=== PATIENT | female | born 1955 | race African-American/Black ===

== ENCOUNTER 2018-06-24 15:09 | Inpatient (IN) ==
[2018-06-24] MEDS ORDERED: Sod Chloride 0.9% Inj 1,000 ML IV.SIG ONE (15:59)
[2018-06-24] MEDS ORDERED: Morphine Inj 4 MG/ML Vial IV.PUSH ONE (16:11)
--- NOTE | 2018-06-24 16:19 | XR ---
EXAM DATE: 06/24/2018 3:59 PM EDT AGE/SEX: 63 years / Female INDICATIONS: Dyspnea. CLINICAL DATA: This is the patient's initial encounter. Patient reports that signs and symptoms have been present for 1 month and indicates a pain score of 0/10. MEDICAL/SURGICAL HISTORY: Congestive heart failure. Diabetes mellitus type II. None. COMPARISON: No prior exams available for comparison. FINDINGS: A single AP view of the chest demonstrates the lungs to be symmetrically aerated without evidence of mass, infiltrate or effusion. There is mild elevation of the right hemidiaphragm. The cardiomediastin al contours are unremarkable. Osseous structures are intact. CONCLUSION: No acute intrathoracic disease. Electronically signed by: Filiberto Jimenez MD 06/24/2018 4:17 PM EDT
[2018-06-24 16:43] LABS: Baso # (Auto) 0.1 th/mm3 (0.0-0.2); Baso % (Auto) 0.4 % (0.0-2.0); Eos % (Auto) 0.2 % (0.0-4.0); Hematocrit 35.1 % (35.0-46.0); Hemoglobin 11.2 gm/dL (11.6-15.3); Lymph # (Auto) 1.2 th/mm3 (1.0-4.8); Lymph % (Auto) 8.6 % (9.0-44.0); Mean Corpuscular Hemoglobin 26.7 pg (27.0-34.0); Mean Corpuscular Volume 83.4 fL (80.0-100.0); Mean Platelet Volume 8.9 fL (7.0-11.0); Mono # (Auto) 0.9 th/mm3 (0.0-0.9); Mono % (Auto) 6.1 % (0.0-8.0); Neut # (Auto) 12.2 th/mm3 (1.8-7.7); Neut % (Auto) 84.7 % (16.0-70.0); Platelet Count 358 th/mm3 (150-450); Red Blood Count 4.21 mil/mm3 (4.00-5.30); Red Cell Distribution Width 14.7 % (11.6-17.2); White Blood Count 14.4 th/mm3 (4.0-11.0)
[2018-06-24] MEDS ORDERED: hydrALAZINE HCl Inj 20 MG/ML Vial IV.PUSH ONE (17:07)
[2018-06-24 17:11] LABS: Alanine Aminotransferase 10 U/L (10-53); Albumin 2.4 g/dL (3.4-5.0); Anion Gap 10 meq/L (5-15); Aspartate Aminotransferase 12 U/L (15-37); Blood Urea Nitrogen 24 mg/dL (7-18); Calcium 8.2 mg/dL (8.5-10.1); Chloride 106 meq/L (98-107); Glomerular Filtration Rate 43 mL/min (>89); Glucose,Random 187 mg/dL (74-106); Sodium 139 meq/L (136-145)
[2018-06-24 17:12] LABS: Potassium 4.2 meq/L (3.5-5.1)
[2018-06-24 17:18] LABS: Alkaline Phosphatase 72 U/L (45-117); Beta Hydroxybutyric Acid 0.31 mmol/L (0.00-0.39); Thyroid Stimulating Hormone 0.201 uIU/mL (0.358-3.740); Total Protein 7.7 g/dL (6.4-8.2)
[2018-06-24 17:19] LABS: Creatine Kinase 45 U/L (26-192)
--- NOTE | 2018-06-24 18:01 | ED ---
HPI General Chief complaint: Weakness Stated complaint: Medical Time Seen by Provider: 06/24/18 15:55 History of Present Illness HPI narrative: This is a 63-year-old female with a history of diabetes mellitus , hypertension, rheumatoid arthritis, SLE, presents today with complaints of diffuse body pain. Patient also reports urinary frequency. Patient states that she is been feeling extremely weak. She states that she has been bad for several days and is not had any strength to get out of bed. Related Data Home Medications Medication Instructions Recorded Confirmed lisinopril 2.5 mg PO DAILY 06/24/18 06/24/18 Previous Rx's Medication Instructions Recorded gabapentin 100 mg PO TID #30 cap 06/27/18 insulin aspart U-100 [Novolog 1 sliding scale dose SUBCUT UD 30 06/27/18 U-100 Insulin aspart] Days ml lisinopril 10 mg PO DAILY 30 Days #30 tab 06/27/18 metformin 500 mg PO BID 30 Days #60 tab 06/27/18 nitrofurantoin monohyd/m-cryst 100 mg PO BID 5 Days #10 cap 06/27/18 [Macrobid] prednisone 5 mg PO DIRECTED 10 Days #10 tab 06/27/18 tramadol [Ultram] 50 mg PO Q6H PRN #8 tab 06/27/18 Allergies Allergy/AdvReac Type Severity Reaction Status Date / Time No Known Allergies Allergy Uncoded 08/27/12 15:42 Review of Systems Constitutional Denies chills and Denies fever(s) Eyes Denies blurry vision and Denies diplopia ENT Reports system reviewed and no additional complaints, except as docu Cardiovascular Reports chest pain (Pain all over), Denies edema and Reports palpitations Respiratory Denies chest congestion, Denies cough and Reports dyspnea Gastrointestinal Denies abdominal pain, Reports nausea and Denies vomiting Genitourinary Reports urinary frequency and Denies dysuria Musculoskeletal Reports myalgias, Reports arthralgias, Denies numbness and Reports other ( Diffuse body pain. Patient has a history of rheumatoid arthritis.) Integumentary/Breasts Reports system reviewed and no additional complaints, except as docu Neurologic Denies dizziness, Denies headache(s) and Reports weakness (Generalized) Endocrine Reports polydipsia and Reports polyuria PMFSH Social History Social History Substance History: No History of Abuse Second Hand Smoke Exposure: No Smoking Status: Never smoker How Often Do You Have a Drink Containing Alcohol: 2 to 4 times a month Recent Travel in [facility] within the Last 8 Weeks: No Recent Out of Country Travel within the Last 8 Weeks: No Immunization History Tetanus Immunization: Unsure Exam Narrative Exam Narrative: GENERAL: Well-developed well-nourished female in no acute respiratory distress. SKIN: Focused skin assessment warm/dry. HEAD: Atraumatic. Normocephalic. EYES: Pupils equal and round. No scleral icterus. No injection or drainage. ENT: No nasal bleeding or discharge. Mucous membranes pink and moist. NECK: Trachea midline. Supple. CARDIOVASCULAR: Sinus tach. No murmur appreciated. RESPIRATORY: No accessory muscle use. Clear to auscultation. Breath sounds equal bilaterally. GASTROINTESTINAL: Abdomen soft, non-tender, nondistended. Hepatic and splenic margins not palpable. MUSCULOSKELETAL: No obvious deformities. No clubbing. No cyanosis. Trace edema to the bilateral lower extremities. NEUROLOGICAL: Awake and alert. No obvious cranial nerve deficits. Motor grossly within normal limits. Normal speech. Course Initial Documented Vital Signs Temperature 98.1 F 06/24/18 16:00 Pulse Rate 118 H 06/24/18 16:00 Respiratory Rate 18 06/24/18 16:00 Blood Pressure 157/79 H 06/24/18 16:00 Pulse Oximetry 99 06/24/18 16:00 Last Documented Vital Signs Temperature 97.6 F 06/27/18 12:37 Pulse Rate 98 H 06/27/18 12:37 Respiratory Rate 16 06/27/18 12:37 Blood Pressure 170/90 H 06/27/18 12:37 Pulse Oximetry 100 06/27/18 12:37 Medical Decision Making [facility] Narrative Medical decision making narrative: 63-year-old female history of hypertension, diabetes mellitus, has been noncompliant with her medications, presents here today with complaints of total body pain. Patient also reports increased thirst and weakness. Patient is noted to be dehydrated with hyperglycemia. Her blood pressure was also elevated. She will be admitted for blood pressure control, blood sugar control, and medication initiation. Patient is also noted to be hyperthyroid with a low TSH. Will be further studies ordered with the admitting physician. Patient is not sure which medicine she has been taking other than the metformin. She states she started taking that 2 days ago. Case was discussed with the [facility] hospitalist who is agreed into the admission. Medical Screen Exam Complete: Yes Emergency Medical Condition: Yes Differential Diagnosis Differential Diagnosis: Hyperglycemia versus anemia versus anasarca versus uncontrolled hypertension Lab Data Result diagrams: 06/24/18 16:15 06/26/18 04:45 Lab Results 06/24/18 06/24/18 06/24/18 Range/Units 16:15 16:15 16:15 WBC 14.4 H (4.0-11.0) th/mm3 RBC 4.21 (4.00-5.30) mil/mm3 Hgb 11.2 L (11.6-15.3) gm/dL Hct 35.1 (35.0-46.0) % MCV 83.4 (80.0-100.0) fL MCH 26.7 L (27.0-34.0) pg MCHC 32.0 (32.0-36.0) % RDW 14.7 (11.6-17.2) % Plt Count 358 (150-450) th/mm3 MPV 8.9 (7.0-11.0) fL Neut % (Auto) 84.7 H (16.0-70.0) % Lymph % (Auto) 8.6 L (9.0-44.0) % [place] % (Auto) 6.1 (0.0-8.0) % Eos % (Auto) 0.2 (0.0-4.0) % Baso % (Auto) 0.4 (0.0-2.0) % Neut # (Auto) 12.2 H (1.8-7.7) th/mm3 Lymph # (Auto) 1.2 (1.0-4.8) th/mm3 [place] # (Auto) 0.9 (0.0-0.9) th/mm3 Eos # (Auto) 0.0 (0.0-0.4) th/mm3 Baso # (Auto) 0.1 (0.0-0.2) th/mm3 WBC Differential . Differential Comment Auto diff final ESR (0-30) mm/hr Sodium 139 (136-145) meq/L Potassium 4.2 (3.5-5.1) meq/L Chloride 106 (98-107) meq/L Carbon Dioxide 23.0 (21.0-32.0) meq/L Anion Gap 10 (5-15) meq/L BUN 24 H (7-18) mg/dL Creatinine 1.48 H (0.50-1.00) mg/dL Estimated GFR 43 L (>89) mL/min POC Glucose (68-110) mg/dl Random Glucose 187 H (74-106) mg/dL Calcium 8.2 L (8.5-10.1) mg/dL Phosphorus 3.0 (2.5-4.9) mg/dL Magnesium 1.6 (1.5-2.5) mg/dL Total Bilirubin 0.3 (0.2-1.0) mg/dL AST 12 L (15-37) U/L ALT 10 (10-53) U/L Alkaline Phosphatase 72 (45-117) U/L Total Creatine Kinase 45 46 (26-192) U/L Troponin I Less than 0.02 L (0.02-0.05) ng/mL C-Reactive Protein (0.00-0.30) mg/dL Total Protein 7.7 (6.4-8.2) g/dL Albumin 2.4 L (3.4-5.0) g/dL Vitamin B12 375 (193-986) pg/mL Beta-Hydroxybutyric Acd 0.31 (0.00-0.39) mmol/L TSH 0.201 L (0.358-3.740) uIU/mL Free T4 1.45 (0.76-1.46) ng/dL Urine Color (Yellw/Straw) Urine Clarity (Clear) Urine pH (5.0-8.5) Ur Specific [place] (1.002-1.035) Urine Protein (Neg-Trace) mg/dL Urine Glucose (UA) (Negative) mg/dL Urine Ketones (Negative) mg/dL Urine Occult Blood (Negative) Urine Nitrate (Negative) Urine Bilirubin (Negative) Urine Urobilinogen (Less than 2) mg/dL Ur Leukocyte Esterase (Negative) Urine RBC (0-3) /hpf Urine WBC (0-5) /hpf Ur Squamous Epith Cells (0-5) /hpf Urine Bacteria (None) /hpf Urine Mucus (Occasional) /lpf Micro UA Comment Ur Microscopic Review Urine Culture Comments 06/24/18 06/25/18 06/25/18 Range/Units 21:17 02:00 05:55 WBC (4.0-11.0) th/mm3 RBC (4.00-5.30) mil/mm3 Hgb (11.6-15.3) gm/dL Hct (35.0-46.0) % MCV (80.0-100.0) fL MCH (27.0-34.0) pg MCHC (32.0-36.0) % RDW (11.6-17.2) % Plt Count (150-450) th/mm3 MPV (7.0-11.0) fL Neut % (Auto) (16.0-70.0) % Lymph % (Auto) (9.0-44.0) % [place] % (Auto) (0.0-8.0) % Eos % (Auto) (0.0-4.0) % Baso % (Auto) (0.0-2.0) % Neut # (Auto) (1.8-7.7) th/mm3 Lymph # (Auto) (1.0-4.8) th/mm3 [place] # (Auto) (0.0-0.9) th/mm3 Eos # (Auto) (0.0-0.4) th/mm3 Baso # (Auto) (0.0-0.2) th/mm3 WBC Differential Differential Comment ESR (0-30) mm/hr Sodium 145 (136-145) meq/L Potassium 3.7 (3.5-5.1) meq/L Chloride 109 H (98-107) meq/L Carbon Dioxide 25.0 (21.0-32.0) meq/L Anion Gap 11 (5-15) meq/L BUN 23 H (7-18) mg/dL Creatinine 1.08 H (0.50-1.00) mg/dL Estimated GFR 62 L (>89) mL/min POC Glucose 172 H (68-110) mg/dl Random Glucose 105 (74-106) mg/dL Calcium 7.9 L (8.5-10.1) mg/dL Phosphorus (2.5-4.9) mg/dL Magnesium (1.5-2.5) mg/dL Total Bilirubin (0.2-1.0) mg/dL AST (15-37) U/L ALT (10-53) U/L Alkaline Phosphatase (45-117) U/L Total Creatine Kinase (26-192) U/L Troponin I (0.02-0.05) ng/mL C-Reactive Protein (0.00-0.30) mg/dL Total Protein (6.4-8.2) g/dL Albumin (3.4-5.0) g/dL Vitamin B12 (193-986) pg/mL Beta-Hydroxybutyric Acd (0.00-0.39) mmol/L TSH (0.358-3.740) uIU/mL Free T4 (0.76-1.46) ng/dL Urine Color Yellow (Yellw/Straw) Urine Clarity Hazy H (Clear) Urine pH 5.0 (5.0-8.5) Ur Specific [place] 1.018 (1.002-1.035) Urine Protein 100 H (Neg-Trace) mg/dL Urine Glucose (UA) Negative (Negative) mg/dL Urine Ketones Trace H (Negative) mg/dL Urine Occult Blood Small H (Negative) Urine Nitrate Negative (Negative) Urine Bilirubin Negative (Negative) Urine Urobilinogen 2.0 H (Less than 2) mg/dL Ur Leukocyte Esterase Trace H (Negative) Urine RBC 1 (0-3) /hpf Urine WBC 8 H (0-5) /hpf Ur Squamous Epith Cells <1 (0-5) /hpf Urine Bacteria Moderate H (None) /hpf Urine Mucus Few H (Occasional) /lpf Micro UA Comment Culture indicated Ur Microscopic Review Not Reportable Urine Culture Comments Culture indicated 06/25/18 06/25/18 06/25/18 Range/Units 08:15 12:32 13:45 WBC (4.0-11.0) th/mm3 RBC (4.00-5.30) mil/mm3 Hgb (11.6-15.3) gm/dL Hct (35.0-46.0) % MCV (80.0-100.0) fL MCH (27.0-34.0) pg MCHC (32.0-36.0) % RDW (11.6-17.2) % Plt Count (150-450) th/mm3 MPV (7.0-11.0) fL Neut % (Auto) (16.0-70.0) % Lymph % (Auto) (9.0-44.0) % [place] % (Auto) (0.0-8.0) % Eos % (Auto) (0.0-4.0) % Baso % (Auto) (0.0-2.0) % Neut # (Auto) (1.8-7.7) th/mm3 Lymph # (Auto) (1.0-4.8) th/mm3 [place] # (Auto) (0.0-0.9) th/mm3 Eos # (Auto) (0.0-0.4) th/mm3 Baso # (Auto) (0.0-0.2) th/mm3 WBC Differential Differential Comment ESR 79 H (0-30) mm/hr Sodium (136-145) meq/L Potassium (3.5-5.1) meq/L Chloride (98-107) meq/L Carbon Dioxide (21.0-32.0) meq/L Anion Gap (5-15) meq/L BUN (7-18) mg/dL Creatinine (0.50-1.00) mg/dL Estimated GFR (>89) mL/min POC Glucose 107 230 H (68-110) mg/dl Random Glucose (74-106) mg/dL Calcium (8.5-10.1) mg/dL Phosphorus (2.5-4.9) mg/dL Magnesium (1.5-2.5) mg/dL Total Bilirubin (0.2-1.0) mg/dL AST (15-37) U/L ALT (10-53) U/L Alkaline Phosphatase (45-117) U/L Total Creatine Kinase (26-192) U/L Troponin I (0.02-0.05) ng/mL C-Reactive Protein (0.00-0.30) mg/dL Total Protein (6.4-8.2) g/dL Albumin (3.4-5.0) g/dL Vitamin B12 (193-986) pg/mL Beta-Hydroxybutyric Acd (0.00-0.39) mmol/L TSH (0.358-3.740) uIU/mL Free T4 (0.76-1.46) ng/dL Urine Color (Yellw/Straw) Urine Clarity (Clear) Urine pH (5.0-8.5) Ur Specific [place] (1.002-1.035) Urine Protein (Neg-Trace) mg/dL Urine Glucose (UA) (Negative) mg/dL Urine Ketones (Negative) mg/dL Urine Occult Blood (Negative) Urine Nitrate (Negative) Urine Bilirubin (Negative) Urine Urobilinogen (Less than 2) mg/dL Ur Leukocyte Esterase (Negative) Urine RBC (0-3) /hpf Urine WBC (0-5) /hpf Ur Squamous Epith Cells (0-5) /hpf Urine Bacteria (None) /hpf Urine Mucus (Occasional) /lpf Micro UA Comment Ur Microscopic Review Urine Culture Comments 06/25/18 06/25/18 06/25/18 Range/Units 13:45 18:22 20:18 WBC (4.0-11.0) th/mm3 RBC (4.00-5.30) mil/mm3 Hgb (11.6-15.3) gm/dL Hct (35.0-46.0) % MCV (80.0-100.0) fL MCH (27.0-34.0) pg MCHC (32.0-36.0) % RDW (11.6-17.2) % Plt Count (150-450) th/mm3 MPV (7.0-11.0) fL Neut % (Auto) (16.0-70.0) % Lymph % (Auto) (9.0-44.0) % [place] % (Auto) (0.0-8.0) % Eos % (Auto) (0.0-4.0) % Baso % (Auto) (0.0-2.0) % Neut # (Auto) (1.8-7.7) th/mm3 Lymph # (Auto) (1.0-4.8) th/mm3 [place] # (Auto) (0.0-0.9) th/mm3 Eos # (Auto) (0.0-0.4) th/mm3 Baso # (Auto) (0.0-0.2) th/mm3 WBC Differential Differential Comment ESR (0-30) mm/hr Sodium (136-145) meq/L Potassium (3.5-5.1) meq/L Chloride (98-107) meq/L Carbon Dioxide (21.0-32.0) meq/L Anion Gap (5-15) meq/L BUN (7-18) mg/dL Creatinine (0.50-1.00) mg/dL Estimated GFR (>89) mL/min POC Glucose 261 H 258 H (68-110) mg/dl Random Glucose (74-106) mg/dL Calcium (8.5-10.1) mg/dL Phosphorus (2.5-4.9) mg/dL Magnesium (1.5-2.5) mg/dL Total Bilirubin (0.2-1.0) mg/dL AST (15-37) U/L ALT (10-53) U/L Alkaline Phosphatase (45-117) U/L Total Creatine Kinase (26-192) U/L Troponin I (0.02-0.05) ng/mL C-Reactive Protein 6.90 H (0.00-0.30) mg/dL Total Protein (6.4-8.2) g/dL Albumin (3.4-5.0) g/dL Vitamin B12 (193-986) pg/mL Beta-Hydroxybutyric Acd (0.00-0.39) mmol/L TSH (0.358-3.740) uIU/mL Free T4 (0.76-1.46) ng/dL Urine Color (Yellw/Straw) Urine Clarity (Clear) Urine pH (5.0-8.5) Ur Specific [place] (1.002-1.035) Urine Protein (Neg-Trace) mg/dL Urine Glucose (UA) (Negative) mg/dL Urine Ketones (Negative) mg/dL Urine Occult Blood (Negative) Urine Nitrate (Negative) Urine Bilirubin (Negative) Urine Urobilinogen (Less than 2) mg/dL Ur Leukocyte Esterase (Negative) Urine RBC (0-3) /hpf Urine WBC (0-5) /hpf Ur Squamous Epith Cells (0-5) /hpf Urine Bacteria (None) /hpf Urine Mucus (Occasional) /lpf Micro UA Comment Ur Microscopic Review Urine Culture Comments 06/25/18 06/26/18 06/26/18 Range/Units 22:15 04:45 09:27 WBC (4.0-11.0) th/mm3 RBC (4.00-5.30) mil/mm3 Hgb (11.6-15.3) gm/dL Hct (35.0-46.0) % MCV (80.0-100.0) fL MCH (27.0-34.0) pg MCHC (32.0-36.0) % RDW (11.6-17.2) % Plt Count (150-450) th/mm3 MPV (7.0-11.0) fL Neut % (Auto) (16.0-70.0) % Lymph % (Auto) (9.0-44.0) % [place] % (Auto) (0.0-8.0) % Eos % (Auto) (0.0-4.0) % Baso % (Auto) (0.0-2.0) % Neut # (Auto) (1.8-7.7) th/mm3 Lymph # (Auto) (1.0-4.8) th/mm3 [place] # (Auto) (0.0-0.9) th/mm3 Eos # (Auto) (0.0-0.4) th/mm3 Baso # (Auto) (0.0-0.2) th/mm3 WBC Differential Differential Comment ESR (0-30) mm/hr Sodium 139 (136-145) meq/L Potassium 4.2 (3.5-5.1) meq/L Chloride 107 (98-107) meq/L Carbon Dioxide 22.4 (21.0-32.0) meq/L Anion Gap 10 (5-15) meq/L BUN 23 H (7-18) mg/dL Creatinine 0.96 (0.50-1.00) mg/dL Estimated GFR 71 L (>89) mL/min POC Glucose 250 H 278 H (68-110) mg/dl Random Glucose 225 H D (74-106) mg/dL Calcium 8.2 L (8.5-10.1) mg/dL Phosphorus (2.5-4.9) mg/dL Magnesium (1.5-2.5) mg/dL Total Bilirubin (0.2-1.0) mg/dL AST (15-37) U/L ALT (10-53) U/L Alkaline Phosphatase (45-117) U/L Total Creatine Kinase (26-192) U/L Troponin I (0.02-0.05) ng/mL C-Reactive Protein (0.00-0.30) mg/dL Total Protein (6.4-8.2) g/dL Albumin (3.4-5.0) g/dL Vitamin B12 (193-986) pg/mL Beta-Hydroxybutyric Acd (0.00-0.39) mmol/L TSH (0.358-3.740) uIU/mL Free T4 (0.76-1.46) ng/dL Urine Color (Yellw/Straw) Urine Clarity (Clear) Urine pH (5.0-8.5) Ur Specific [place] (1.002-1.035) Urine Protein (Neg-Trace) mg/dL Urine Glucose (UA) (Negative) mg/dL Urine Ketones (Negative) mg/dL Urine Occult Blood (Negative) Urine Nitrate (Negative) Urine Bilirubin (Negative) Urine Urobilinogen (Less than 2) mg/dL Ur Leukocyte Esterase (Negative) Urine RBC (0-3) /hpf Urine WBC (0-5) /hpf Ur Squamous Epith Cells (0-5) /hpf Urine Bacteria (None) /hpf Urine Mucus (Occasional) /lpf Micro UA Comment Ur Microscopic Review Urine Culture Comments 06/26/18 06/26/18 06/26/18 Range/Units 12:41 18:06 20:19 WBC (4.0-11.0) th/mm3 RBC (4.00-5.30) mil/mm3 Hgb (11.6-15.3) gm/dL Hct (35.0-46.0) % MCV (80.0-100.0) fL MCH (27.0-34.0) pg MCHC (32.0-36.0) % RDW (11.6-17.2) % Plt Count (150-450) th/mm3 MPV (7.0-11.0) fL Neut % (Auto) (16.0-70.0) % Lymph % (Auto) (9.0-44.0) % [place] % (Auto) (0.0-8.0) % Eos % (Auto) (0.0-4.0) % Baso % (Auto) (0.0-2.0) % Neut # (Auto) (1.8-7.7) th/mm3 Lymph # (Auto) (1.0-4.8) th/mm3 [place] # (Auto) (0.0-0.9) th/mm3 Eos # (Auto) (0.0-0.4) th/mm3 Baso # (Auto) (0.0-0.2) th/mm3 WBC Differential Differential Comment ESR (0-30) mm/hr Sodium (136-145) meq/L Potassium (3.5-5.1) meq/L Chloride (98-107) meq/L Carbon Dioxide (21.0-32.0) meq/L Anion Gap (5-15) meq/L BUN (7-18) mg/dL Creatinine (0.50-1.00) mg/dL Estimated GFR (>89) mL/min POC Glucose 231 H 365 H 349 H (68-110) mg/dl Random Glucose (74-106) mg/dL Calcium (8.5-10.1) mg/dL Phosphorus (2.5-4.9) mg/dL Magnesium (1.5-2.5) mg/dL Total Bilirubin (0.2-1.0) mg/dL AST (15-37) U/L ALT (10-53) U/L Alkaline Phosphatase (45-117) U/L Total Creatine Kinase (26-192) U/L Troponin I (0.02-0.05) ng/mL C-Reactive Protein (0.00-0.30) mg/dL Total Protein (6.4-8.2) g/dL Albumin (3.4-5.0) g/dL Vitamin B12 (193-986) pg/mL Beta-Hydroxybutyric Acd (0.00-0.39) mmol/L TSH (0.358-3.740) uIU/mL Free T4 (0.76-1.46) ng/dL Urine Color (Yellw/Straw) Urine Clarity (Clear) Urine pH (5.0-8.5) Ur Specific [place] (1.002-1.035) Urine Protein (Neg-Trace) mg/dL Urine Glucose (UA) (Negative) mg/dL Urine Ketones (Negative) mg/dL Urine Occult Blood (Negative) Urine Nitrate (Negative) Urine Bilirubin (Negative) Urine Urobilinogen (Less than 2) mg/dL Ur Leukocyte Esterase (Negative) Urine RBC (0-3) /hpf Urine WBC (0-5) /hpf Ur Squamous Epith Cells (0-5) /hpf Urine Bacteria (None) /hpf Urine Mucus (Occasional) /lpf Micro UA Comment Ur Microscopic Review Urine Culture Comments 06/27/18 06/27/18 Range/Units 09:38 12:52 WBC (4.0-11.0) th/mm3 RBC (4.00-5.30) mil/mm3 Hgb (11.6-15.3) gm/dL Hct (35.0-46.0) % MCV (80.0-100.0) fL MCH (27.0-34.0) pg MCHC (32.0-36.0) % RDW (11.6-17.2) % Plt Count (150-450) th/mm3 MPV (7.0-11.0) fL Neut % (Auto) (16.0-70.0) % Lymph % (Auto) (9.0-44.0) % [place] % (Auto) (0.0-8.0) % Eos % (Auto) (0.0-4.0) % Baso % (Auto) (0.0-2.0) % Neut # (Auto) (1.8-7.7) th/mm3 Lymph # (Auto) (1.0-4.8) th/mm3 [place] # (Auto) (0.0-0.9) th/mm3 Eos # (Auto) (0.0-0.4) th/mm3 Baso # (Auto) (0.0-0.2) th/mm3 WBC Differential Differential Comment ESR (0-30) mm/hr Sodium (136-145) meq/L Potassium (3.5-5.1) meq/L Chloride (98-107) meq/L Carbon Dioxide (21.0-32.0) meq/L Anion Gap (5-15) meq/L BUN (7-18) mg/dL Creatinine (0.50-1.00) mg/dL Estimated GFR (>89) mL/min POC Glucose 196 H 159 H (68-110) mg/dl Random Glucose (74-106) mg/dL Calcium (8.5-10.1) mg/dL Phosphorus (2.5-4.9) mg/dL Magnesium (1.5-2.5) mg/dL Total Bilirubin (0.2-1.0) mg/dL AST (15-37) U/L ALT (10-53) U/L Alkaline Phosphatase (45-117) U/L Total Creatine Kinase (26-192) U/L Troponin I (0.02-0.05) ng/mL C-Reactive Protein (0.00-0.30) mg/dL Total Protein (6.4-8.2) g/dL Albumin (3.4-5.0) g/dL Vitamin B12 (193-986) pg/mL Beta-Hydroxybutyric Acd (0.00-0.39) mmol/L TSH (0.358-3.740) uIU/mL Free T4 (0.76-1.46) ng/dL Urine Color (Yellw/Straw) Urine Clarity (Clear) Urine pH (5.0-8.5) Ur Specific [place] (1.002-1.035) Urine Protein (Neg-Trace) mg/dL Urine Glucose (UA) (Negative) mg/dL Urine Ketones (Negative) mg/dL Urine Occult Blood (Negative) Urine Nitrate (Negative) Urine Bilirubin (Negative) Urine Urobilinogen (Less than 2) mg/dL Ur Leukocyte Esterase (Negative) Urine RBC (0-3) /hpf Urine WBC (0-5) /hpf Ur Squamous Epith Cells (0-5) /hpf Urine Bacteria (None) /hpf Urine Mucus (Occasional) /lpf Micro UA Comment Ur Microscopic Review Urine Culture Comments Imaging Data Radiologist's impression: Chest X-Ray 06/24/18 15:59 CONCLUSION: No acute intrathoracic disease. Wrist X-Ray 06/26/18 00:00 CONCLUSION: Erosive osteoarthritis. There is widening of the scapholunate distance suggesting scapholunate ligamentous injury which could be chronic in nature. MRI would be needed to further assess if clinically warranted. Wrist X-Ray 06/26/18 00:00 CONCLUSION: Mild erosive osteoarthritis. No acute abnormality. Discharge Plan Discharge Disposition Patient Disposition: 30 Still Patient Discharge Details Diagnosis: Dehydration, Diabetes mellitus, Hypertension, uncontrolled, Noncompliance with medication regimen, Hyperthyroidism Physicians Team ED Provider: Woody Mariano Primary Care Provider: Courtney Gonzalez Attending Provider: Hossein Le Discharge Interventions Interventions: ED Discharge Assessment Last Done: 06/24/18 19:30 Vital Signs Last Done: 06/24/18 16:00 Status ED Status: Left Department Discharge Information Discharge Date/Time: 06/24/18 19:30
--- NOTE | 2018-06-24 18:53 | P.HP ---
History of Present Illness Primary Care Physician: Courtney Gonzalez MD History of Present Illness: 63-year-old black female being admitted for acute kidney injury and generalized weakness. History is largely provided by the patient's mother and daughter who are at the bedside. Patient herself seems quite fatigued and somnolent at times thus limiting history. Patient was allegedly in her usual state of health until today when the patient' s niece contacted the patient's mother and told her that upon trying to bathe her the patient would scream in pain and began to cry, also reported that her hands appeared puffy. Mother went over to see the patient and noted that when she ever she tried to move her from the bed she would scream in pain. Noted that the patient was slightly tachypneic, patient told her mother that she was "hurting all over." Her bed was found to be soaked in urine and the patient appeared to be quite fatigued. They contacted 911. The patient's mother and daughter both suspect that she is likely been mostly lying in bed, patient has been living alone and usually does not tell anyone that she needs any help. They suspect that she has been like this for the last 3 weeks. They conveyed that she has a strong history of being noncompliant with medications. They say that she recently restarted taking her metformin in terms of the only medication that she is taking at all despite her history of "lupus." Daughter does mention that the patient goes through a "whole bottle" of Aleve in a month for her pain. In the emergency department patient had a chest x-ray done which upon my independent review shows no acute findings. White count was around 14,000. Blood work otherwise was unremarkable except for an acute kidney injury with a creatinine around 1.43. EKG showed mild tachycardia. Review of Systems All other systems reviewed negative except as stated in HPI PMFSH - History History Provided By: Patient - Medical History Medical History: Medical History (Last Reviewed 06/24/18 @ 18:46 by Gorge Boss MD) CHF (congestive heart failure) Diabetes Lupus Rheumatoid arthritis - Family History Family History: Family History (Last Updated 06/25/18 @ 09:09 by Gorge Boss MD) Other Diabetes - Social History I have reviewed the patient's Social History: Yes - Tobacco History Second Hand Smoke Exposure: No Tobacco Use In Past 30 Days: No Smoking Status: Never smoker - Alcohol History How Often Do You Have a Drink Containing Alcohol: 2 to 4 times a month - Substance Use History Substance History: No History of Abuse - Travel History Recent Travel in the [place] Within the Last 8 Weeks: No Recent Travel Out of the Country Within the Last 8 Weeks: No - Immunization History Tetanus Immunization: Unsure Medications and Allergies Active Medications: Active Medications Sodium Chloride (Ns Flush) 2 ml IV.FLUSH BID JORGE Sodium Chloride (Ns Flush) 2 ml IV.FLUSH PRN PRN PRN Reason: FLUSH AFTER USING IV ACCESS Allergies Allergy/AdvReac Type Severity Reaction Status Date / Time No Known Allergies Allergy Uncoded 08/27/12 15:42 Home Medications Medication Instructions Recorded Confirmed Type lisinopril 2.5 mg PO DAILY 06/24/18 06/24/18 History Exam Vital signs: Vital Signs 06/24/18 16:00 06/24/18 17:13 Temperature 98.1 F Pulse Rate 118 H 112 H Respiratory Rate 18 Blood Pressure 157/79 H Pulse Oximetry 99 100 Intake & Output 06/23/18 06/24/18 06/24/18 18:59 06:59 18:59 Weight 81.647 kg Narrative: VS: afebrile GENERAL: Middle-aged black female, appears somnolent, but awakens easily when prompted SKIN: Warm and dry. EYES: Pupils equal and round. No scleral icterus. No injection or drainage. ENT: No nasal bleeding or discharge. Mucous membranes pink and moist. CARDIOVASCULAR: Tachycardic rate, regular rhythm, no lower extremity edema RESPIRATORY: No accessory muscle use. Clear to auscultation. Breath sounds equal bilaterally. GASTROINTESTINAL: Abdomen soft, non-tender, nondistended. Extremities: No clubbing, cyanosis, or edema. No obvious deformities. Lower extremities appear very dry with obvious skin tenting MUSCULOSKELETAL: adequate muscle bulk and tone for age and habitus. Unable to truly assess strength in upper and lower extremities as the patient seems to moan and groan in pain whenever we engage in active flexion or extension of all of her 4 extremities. She does demonstrate at least 3/5 bilateral for prescription NEUROLOGICAL: Somnolent, awakens when prompted, easily falls asleep again. No facial droop nor slurred speech noted. Alert and oriented x3, intact insight. PSYCHIATRIC: Appropriate mood and affect; insight and judgment normal. Results - Labs CBC & Chem 7: 06/24/18 16:15 06/25/18 05:55 Labs: Laboratory Results - last 24 hr 06/24/18 06/24/18 16:15 16:15 WBC 14.4 H RBC 4.21 Hgb 11.2 L Hct 35.1 MCV 83.4 MCH 26.7 L MCHC 32.0 RDW 14.7 Plt Count 358 MPV 8.9 Neut % (Auto) 84.7 H Lymph % (Auto) 8.6 L [place] % (Auto) 6.1 Eos % (Auto) 0.2 Baso % (Auto) 0.4 Neut # (Auto) 12.2 H Lymph # (Auto) 1.2 [place] # (Auto) 0.9 Eos # (Auto) 0.0 Baso # (Auto) 0.1 WBC Differential . Differential Comment Auto diff final Sodium 139 Potassium 4.2 Chloride 106 Carbon Dioxide 23.0 Anion Gap 10 BUN 24 H Creatinine 1.48 H Estimated GFR 43 L Random Glucose 187 H Calcium 8.2 L Total Bilirubin 0.3 AST 12 L ALT 10 Alkaline Phosphatase 72 Total Creatine Kinase 45 Troponin I Less than 0.02 L Total Protein 7.7 Albumin 2.4 L Beta-Hydroxybutyric Acd 0.31 TSH 0.201 L - Imaging Impressions Chest X-Ray 06/24/18 15:59 CONCLUSION: No acute intrathoracic disease. Caprini VTE Risk Assessment Caprini VTE Risk Assessment: Moderate/High Risk (score >= 2) Caprini Risk Assessment Model: Point Value = 1 Point Value = 2 Point Value = 3 Point Value = 5 Age 41-60 Minor surgery BMI > 25 kg/m2 Swollen legs Varicose veins or History of unexplained or recurrent spontaneous Oral contraceptives or hormone replacement Sepsis (< 1 month) Serious lung disease, including pneumonia (< 1 month) Abnormal pulmonary function Acute myocardial infarction Congestive heart failure (< 1 month) History of inflammatory bowel disease Medical patient at bed rest Age 61-74 Arthroscopic surgery Major open surgery (> 45 min) Laparoscopic surgery (> 45 min) Malignancy Confined to bed (> 72 hours) Immobilizing plaster cast Central venous access Age >= 75 History of VTE Family history of VTE Factor V Leiden Prothrombin [id number] Lupus anticoagulant Anticardiolipin antibodies Elevated serum homocysteine Heparin-induced thrombocytopenia Other congenital or acquired thrombophilia Stroke (< 1 month) Elective arthroplasty Hip, pelvis, or leg fracture Acute spinal cord injury (< 1 month) Prophylaxis Regimen: Total Risk Factor Score Risk Level Prophylaxis Regimen 0-1 Low Early ambulation 2 Moderate Order ONE of the following: *Sequential Compression Device (SCD) *Heparin 5000 units SQ BID 3-4 Higher Order ONE of the following medications: *Heparin 5000 units SQ TID *Enoxaparin/Lovenox 40 mg SQ daily (WT < 150 kg, CrCl > 30 mL/min) *Enoxaparin/Lovenox 30 mg SQ daily (WT < 150 kg, CrCl > 10-29 mL/min) *Enoxaparin/Lovenox 30 mg SQ BID (WT < 150 kg, CrCl > 30 mL/min) AND/OR *Sequential Compression Device (SCD) 5 or more Highest Order ONE of the following medications: *Heparin 5000 units SQ TID (Preferred with Epidurals) *Enoxaparin/Lovenox 40 mg SQ daily (WT < 150 kg, CrCl > 30 mL/min) *Enoxaparin/Lovenox 30 mg SQ daily (WT < 150 kg, CrCl > 10-29 mL/min) *Enoxaparin/Lovenox 30 mg SQ BID (WT < 150 kg, CrCl > 30 mL/min) AND *Sequential Compression Device (SCD) Assessment and Plan - Plan 63-year-old black female being admitted for acute kidney injury and generalized weakness. Acute kidney injury -Suspect dehydration with nausea as the main culprit Rehydrate with normal saline, recheck in a.m. Generalized weakness -With a history of lupus this may be secondary to deconditioning secondary to sedentary lifestyle secondary to holding back from back from pain secondary to being noncompliant with her medications -PT/OT -Follow-up free T4, CK MB, magnesium, phosphorus, vitamin B12 -Check pharmacy medications, will likely benefit from steroids -UA collection still pending from ED Diabetes Accu-Cheks, low-dose sliding scale for now, adjust as appropriate Lupus? RA? - awaiting for pharm med list, may benefit from dose of steroids to help with pain Somnolence Patient claiming this is secondary to morphine that she received in the ER, hold off on further morphine for now, if no improvement by a.m. we will proceed with CT head. -Vitamin B12 levels SCDs; start Lovenox tomorrow once clinical status ensures that there's no [employer] etiology present causing pt's somnolence (or if CT hd is negative if still needed by AM) Discharge Planning: likely unable to take care of herself upon discharge; consulting CM
[2018-06-24] MEDS ORDERED: Dextrose 50% in Water 50 ML Vial IV.PUSH PRN (19:05)
[2018-06-24 19:24] LABS: Magnesium 1.6 mg/dL (1.5-2.5)
[2018-06-24 20:03] LABS: Free T4 (Free Thyroxine) 1.45 ng/dL (0.76-1.46)
[2018-06-24] MEDS: Insulin NovoLOG Aspart Correctional Sugar Inj SQ SCH (22:12)
[2018-06-24] MEDS: Sod Chloride 0.9% Inj 1,000 ML IV.CONT SCH (22:13)
[2018-06-25 02:32] LABS: Bacteria,Urine Moderate /hpf; Bilirubin,Urine Negative (Negative); Clarity,Urine Hazy (Clear); Color,Urine Yellow (Yellw/Straw); Glucose,Urine (UA) Negative (Negative); Leukocyte Esterase,Urine Trace (Negative); Mucus,Urine Few /lpf (Occasional); Nitrite,Urine Negative (Negative); Specific Gravity,Urine 1.018 (1.002-1.035); Squamous Epithelial Cell,Urine <1 /hpf (0-5)
[2018-06-25 08:23] LABS: Calcium 7.9 mg/dL (8.5-10.1); Potassium 3.7 meq/L (3.5-5.1)
[2018-06-25] MEDS: Insulin NovoLOG Aspart Correctional Sugar Inj SQ SCH ×4 (09:02→22:24)
[2018-06-25] MEDS: Sod Chloride 0.9% Inj 1,000 ML IV.CONT SCH ×2 (09:03→17:11)
--- NOTE | 2018-06-25 10:22 | P.PNIM ---
Subjective Interval history: f/u KASSIDY in no acute distress. complaining of some pain and swelling of both hands which she relates to her arthritis. no other complaints. no fever. Physical Exam Vital signs: Vital Signs 06/24/18 16:00 06/24/18 17:13 06/24/18 19:06 Temperature 98.1 F Pulse Rate 118 H 112 H 120 H Respiratory Rate 18 20 Blood Pressure 157/79 H 137/67 Pulse Oximetry 99 100 98 06/24/18 20:00 06/24/18 23:36 06/24/18 23:38 Temperature 97.9 F 99.1 F Pulse Rate 128 H 123 H 125 H Respiratory Rate 17 17 Blood Pressure 140/72 130/72 Pulse Oximetry 96 95 06/25/18 03:59 06/25/18 08:00 Temperature 99 F 98.3 F Pulse Rate 114 H 117 H Respiratory Rate 17 16 Blood Pressure 141/73 H 142/90 H Pulse Oximetry 96 100 Intake & Output 06/24/18 06/25/18 06/25/18 18:59 06:59 18:59 Intake Total 1000 / 1000 1000 / 1000 Balance 1000 / 1000 1000 / 1000 Weight 81.647 kg 102 kg Intake: IV 1000 / 1000 1000 / 1000 NS Inj 1,000 ML @ 100 mls/hr IV 1000 / 1000 .CONT .Q10H JORGE Rx#:[id number] NS Inj 1,000 ML @ Wide Open IV. 1000 / 1000 SIG BOLUS ONE Rx#:[id number] Other: Weight On Admission 102 kg - Constitutional no acute distress - Routine Respiratory Exam Present: CTA bilaterally - Routine Cardiovascular Exam Present: RRR - Routine Abdominal Exam Present: soft - Routine Extremities Exam Comments: no pedal edema; some selling of both hands. - Routine Neurological Exam Present: alert, oriented X3 Results - Labs CBC & Chem 7: 06/24/18 16:15 06/25/18 05:55 Laboratory Results - last 24 hr 06/24/18 06/24/18 06/24/18 16:15 16:15 16:15 WBC 14.4 H RBC 4.21 Hgb 11.2 L Hct 35.1 MCV 83.4 MCH 26.7 L MCHC 32.0 RDW 14.7 Plt Count 358 MPV 8.9 Neut % (Auto) 84.7 H Lymph % (Auto) 8.6 L [place] % (Auto) 6.1 Eos % (Auto) 0.2 Baso % (Auto) 0.4 Neut # (Auto) 12.2 H Lymph # (Auto) 1.2 [place] # (Auto) 0.9 Eos # (Auto) 0.0 Baso # (Auto) 0.1 WBC Differential . Differential Comment Auto diff final Sodium 139 Potassium 4.2 Chloride 106 Carbon Dioxide 23.0 Anion Gap 10 BUN 24 H Creatinine 1.48 H Estimated GFR 43 L POC Glucose Random Glucose 187 H Calcium 8.2 L Phosphorus 3.0 Magnesium 1.6 Total Bilirubin 0.3 AST 12 L ALT 10 Alkaline Phosphatase 72 Total Creatine Kinase 45 46 Troponin I Less than 0.02 L Total Protein 7.7 Albumin 2.4 L Vitamin B12 375 Beta-Hydroxybutyric Acd 0.31 TSH 0.201 L Free T4 1.45 Urine Color Urine Clarity Urine pH Ur Specific [place] Urine Protein Urine Glucose (UA) Urine Ketones Urine Occult Blood Urine Nitrate Urine Bilirubin Urine Urobilinogen Ur Leukocyte Esterase Urine RBC Urine WBC Ur Squamous Epith Cells Urine Bacteria Urine Mucus Micro UA Comment Ur Microscopic Review Urine Culture Comments 06/24/18 06/25/18 06/25/18 21:17 02:00 05:55 WBC RBC Hgb Hct MCV MCH MCHC RDW Plt Count MPV Neut % (Auto) Lymph % (Auto) [place] % (Auto) Eos % (Auto) Baso % (Auto) Neut # (Auto) Lymph # (Auto) [place] # (Auto) Eos # (Auto) Baso # (Auto) WBC Differential Differential Comment Sodium 145 Potassium 3.7 Chloride 109 H Carbon Dioxide 25.0 Anion Gap 11 BUN 23 H Creatinine 1.08 H Estimated GFR 62 L POC Glucose 172 H Random Glucose 105 Calcium 7.9 L Phosphorus Magnesium Total Bilirubin AST ALT Alkaline Phosphatase Total Creatine Kinase Troponin I Total Protein Albumin Vitamin B12 Beta-Hydroxybutyric Acd TSH Free T4 Urine Color Yellow Urine Clarity Hazy H Urine pH 5.0 Ur Specific [place] 1.018 Urine Protein 100 H Urine Glucose (UA) Negative Urine Ketones Trace H Urine Occult Blood Small H Urine Nitrate Negative Urine Bilirubin Negative Urine Urobilinogen 2.0 H Ur Leukocyte Esterase Trace H Urine RBC 1 Urine WBC 8 H Ur Squamous Epith Cells <1 Urine Bacteria Moderate H Urine Mucus Few H Micro UA Comment Culture indicated Ur Microscopic Review Not Reportable Urine Culture Comments Culture indicated 06/25/18 08:15 WBC RBC Hgb Hct MCV MCH MCHC RDW Plt Count MPV Neut % (Auto) Lymph % (Auto) [place] % (Auto) Eos % (Auto) Baso % (Auto) Neut # (Auto) Lymph # (Auto) [place] # (Auto) Eos # (Auto) Baso # (Auto) WBC Differential Differential Comment Sodium Potassium Chloride Carbon Dioxide Anion Gap BUN Creatinine Estimated GFR POC Glucose 107 Random Glucose Calcium Phosphorus Magnesium Total Bilirubin AST ALT Alkaline Phosphatase Total Creatine Kinase Troponin I Total Protein Albumin Vitamin B12 Beta-Hydroxybutyric Acd TSH Free T4 Urine Color Urine Clarity Urine pH Ur Specific [place] Urine Protein Urine Glucose (UA) Urine Ketones Urine Occult Blood Urine Nitrate Urine Bilirubin Urine Urobilinogen Ur Leukocyte Esterase Urine RBC Urine WBC Ur Squamous Epith Cells Urine Bacteria Urine Mucus Micro UA Comment Ur Microscopic Review Urine Culture Comments - Imaging Impressions Chest X-Ray 06/24/18 15:59 CONCLUSION: No acute intrathoracic disease. Assessment and Plan - Plan Acute kidney injury -Suspect dehydration with nausea as the main culprit renal function is improving. Generalized weakness -With a history of lupus this may be secondary to deconditioning secondary to sedentary lifestyle secondary to holding back from back from pain secondary to being noncompliant with her medications -PT/OT Diabetes Accu-Cheks, low-dose sliding scale for now, adjust as appropriate Lupus? RA? - check ESR/ CRP. -will try prednisone SCDs; Lovenox subq Discharge Planning: d/w the patient regarding rehab. case management consulted. dc planning; within the next 24 hrs if pain is better controlled and stable.
[2018-06-25] MEDS: predniSONE 20 MG Tablet PO SCH ×2 (14:46→20:34)
--- NOTE | 2018-06-25 15:54 | ECG ---
Date Performed: 06/24/2018 Time Performed: 18:12:54 PTAGE: 63 years EKG: SINUS TACHYCARDIA ABNORMAL RHYTHM ECG PREVIOUS TRACING 06/28/2010 @ 12.31.48 Since the previous tracing, no significant change noted DOCTOR: Chet Rowe Interpretating Date/Time 06/25/2018 15:53:17
[2018-06-25] MEDS ORDERED: Gabapentin 300 MG Capsule PO ONE (21:30)
[2018-06-26] MEDS: Sod Chloride 0.9% Inj 1,000 ML IV.CONT SCH ×3 (03:50→22:34)
[2018-06-26 06:48] LABS: Calcium 8.2 mg/dL (8.5-10.1); Carbon Dioxide 22.4 meq/L (21.0-32.0); Potassium 4.2 meq/L (3.5-5.1)
[2018-06-26] MEDS: predniSONE 20 MG Tablet PO SCH (09:21)
--- NOTE | 2018-06-26 09:25 | P.PNIM ---
Subjective Interval history: f/u; KASSIDY in no acute distress. has some pain to both wrists and hands but she says that it's better today. BP trend noted. no other new complaints. Physical Exam Vital signs: Vital Signs 06/25/18 12:00 06/25/18 16:00 06/25/18 17:10 Temperature 98.1 F 97.6 F Pulse Rate 117 H 111 H 99 H Respiratory Rate 16 16 Blood Pressure 166/81 H 166/77 H Pulse Oximetry 100 99 06/25/18 18:57 06/25/18 20:21 06/25/18 20:30 Temperature 98.1 F Pulse Rate 117 H 114 H Respiratory Rate 4 L 16 Blood Pressure 179/81 H Pulse Oximetry 98 06/26/18 00:00 06/26/18 03:34 06/26/18 04:05 Temperature 99.6 F 99 F Pulse Rate 110 H 97 H 95 H Respiratory Rate 17 17 Blood Pressure 183/88 H 162/78 H Pulse Oximetry 94 L 96 06/26/18 08:00 Temperature 98.3 F Pulse Rate 97 H Respiratory Rate 16 Blood Pressure 187/90 H Pulse Oximetry 96 Intake & Output 06/25/18 06/26/18 06/26/18 18:59 06:59 18:59 Intake Total 1999 1000 / 1000 Balance 1999 1000 / 1000 Intake: IV 1999 1000 / 1000 NS Inj 1,000 ML @ 100 mls/hr IV 1999 1000 / 1000 .CONT .Q10H [facility] Rx#:[id number] - Constitutional no acute distress - Routine Respiratory Exam Present: CTA bilaterally - Routine Cardiovascular Exam Present: RRR - Routine Abdominal Exam Present: soft - Routine Extremities Exam Comments: some swelling/ and tenderness over both hands/ wrists- but improved. - Routine Neurological Exam Present: alert, oriented X3 Results - Labs CBC & Chem 7: 06/24/18 16:15 06/26/18 04:45 Laboratory Results - last 24 hr 06/25/18 06/25/18 06/25/18 12:32 13:45 13:45 ESR 79 H Sodium Potassium Chloride Carbon Dioxide Anion Gap BUN Creatinine Estimated GFR POC Glucose 230 H Random Glucose Calcium C-Reactive Protein 6.90 H 06/25/18 06/25/18 06/25/18 18:22 20:18 22:15 ESR Sodium Potassium Chloride Carbon Dioxide Anion Gap BUN Creatinine Estimated GFR POC Glucose 261 H 258 H 250 H Random Glucose Calcium C-Reactive Protein 06/26/18 04:45 ESR Sodium 139 Potassium 4.2 Chloride 107 Carbon Dioxide 22.4 Anion Gap 10 BUN 23 H Creatinine 0.96 Estimated GFR 71 L POC Glucose Random Glucose 225 H D Calcium 8.2 L C-Reactive Protein Assessment and Plan - Plan Acute kidney injury -Suspect dehydration with nausea as the main culprit renal function is improving. Generalized weakness -With a history of lupus this may be secondary to deconditioning secondary to sedentary lifestyle secondary to holding back from back from pain secondary to being noncompliant with her medications -PT/OT Diabetes/neuropathy Accu-Cheks, low-dose sliding scale for now, adjust as appropriate -start on Neurontin possible flare-up of RA with elevated ESR/ CRP- seems to be improving - will taper down the prednisone -check XR of both wrists -f/u with slurry tank operator as outpatient and this was d/w the patient at length Hypertension; not controlled; start on Amlodipine SCDs; Lovenox subq Discharge Planning: d/w the patient regarding rehab. case management consulted. dc planning; within the next 24 hrs if pain is better controlled and stable.
--- NOTE | 2018-06-26 10:37 | XR ---
EXAM DATE: 06/26/2018 12:00 AM EDT AGE/SEX: 63 years / Female INDICATIONS: Right wrist pain and arthritis. CLINICAL DATA: This is the patient's subsequent encounter. Patient reports that signs and symptoms h ave been present for 2 days and indicates a pain score of 4/10. MEDICAL/SURGICAL HISTORY: Diabetes mellitus type II. Congestive heart failure. None. [place] [facility] [place] 3[place]/26/[place]. . FINDINGS: 3 views of the right wrist show joint space narrowing with osteophyte production involving the first carpal metacarpal joint. An erosion is seen involving the scaphoid bone. The remaining joints through out the carpus are unremarkable. No fracture or dislocation. Soft tissues are unremarkable. CONCLUSION: Mild erosive osteoarthritis. No acute abnormality. Electronically signed by: Jesus Umanzor MD 06/26/2018 10:36 AM EDT
--- NOTE | 2018-06-26 10:39 | XR ---
EXAM DATE: 06/26/2018 12:00 AM EDT AGE/SEX: 63 years / Female INDICATIONS: Left wrist pain and arthritis. CLINICAL DATA: This is the patient's subsequent encounter. Patient reports that signs and symptoms h ave been present for 2 days and indicates a pain score of 4/10. MEDICAL/SURGICAL HISTORY: Congestive heart failure. Diabetes mellitus type II. None. COMPARISON: No prior exams available for comparison. FINDINGS: 3 views of the left wrist reveal joint space narrowing with periarticular sclerotic change and osteop hyte production involving the first carpal metacarpal joint. An erosion is seen involving the scaphoi d. There is widening of the scapholunate distance. No acute fractures or dislocations. Joint space na rrowing with periarticular sclerotic change involving the radiocarpal joint. Soft tissues are unremar kable. CONCLUSION: Erosive osteoarthritis. There is widening of the scapholunate distance suggesting scapholunate ligame ntous injury which could be chronic in nature. MRI would be needed to further assess if clinically wa rranted. Electronically signed by: Jesus Umanzor MD 06/26/2018 10:38 AM EDT
[2018-06-26] MEDS: amLODIPine 5 MG Tablet PO SCH (11:03)
[2018-06-26] MEDS: Insulin NovoLOG Aspart Correctional Sugar Inj SQ SCH ×4 (11:05→20:59)
[2018-06-26] MEDS: Gabapentin 100 MG Capsule PO SCH ×2 (12:34→18:27)
--- NOTE | 2018-06-26 16:56 | P.PNWCN ---
Wound Care Nurse Consult Description: Consult for Wound Management of sacral per Dr Le Communicated with: Patient Patel, RN Dr Le Recommendation: Q3D and PRN for soiling or dislodgement: Cleanse gluteal fissure with Ns and gauze. Apply Maxorb II to wound and secure with dry cover. Additional information: Patient seen in G pod for wound evaluation of sacrum. Patient positioned herself to her right side for assessment. Hydrocolloid dressing was carefully removed from bilateral buttocks/coccyx/sacral area. A partial thickness skin loss gluteal fissure was visualized by designer/writer and measured 0.5cm x 0.2cm x 0.2cm of 100% red non granulating tissue with maceration noted to wound margins and periwound. Wound had no odor and no active drainage. Wound was cleansed with NS and gauze. Maxorb II was placed in/on wound bed and secured with a transparent absorbant film dressing that may remain in place for up to 3 days unless soiled or dislodged. Wound/Pressure Injury - Patient Status Premedicated for Pain Prior to Dressing Change: No - Wound Gluteal Cleft Wound Staging: Stage II (mixed etiology of pressure and moisture with skin tearing) Wound Assessment: Admission Wound Type: Skin Tear Is This a Chronic Wound: No Requested from Provider a Wound Care Consult: Yes (Dr Le) Length (cm): 0.5 (cm) Width (cm): 0.2 (cm) Depth (cm): 0.2 (cm) Wound Bed Appearance: Red, Shiny Drainage Amount: None Drainage Odor: No Odor Dressing Status: Changed Cleansing Solution: Saline Wound Packing Type: Alginate Cover Dressing: Transparent Wound Dressing Change Date: 06/26/18
[2018-06-27] MEDS: predniSONE 20 MG Tablet PO SCH (10:01)
[2018-06-27] MEDS: amLODIPine 5 MG Tablet PO SCH (10:02)
[2018-06-27] MEDS: Gabapentin 100 MG Capsule PO SCH ×3 (10:02→18:00)
[2018-06-27] MEDS: Insulin NovoLOG Aspart Correctional Sugar Inj SQ SCH ×4 (10:03→21:17)
[2018-06-27] MEDS: Sod Chloride 0.9% Inj 1,000 ML IV.CONT SCH ×2 (10:06→18:55)
--- NOTE | 2018-06-27 10:29 | P.PNIM ---
Subjective Interval history: f/u; elevated BP/ wrist pain in no acute distress. pain seems to be improving. no fever. d/w the RN. Physical Exam Vital signs: Vital Signs 06/26/18 11:36 06/26/18 16:00 06/26/18 20:00 Temperature 97.8 F 98.2 F 98.0 F Pulse Rate 90 101 H 99 H Respiratory Rate 16 18 18 Blood Pressure 165/86 H 180/83 H 205/94 H Pulse Oximetry 99 99 98 06/27/18 01:27 06/27/18 04:24 06/27/18 08:37 Temperature 98.5 F 98.9 F 98.1 F Pulse Rate 82 78 80 Respiratory Rate 18 19 18 Blood Pressure 167/75 H 163/77 H 172/90 H Pulse Oximetry 96 95 98 Intake & Output 06/26/18 06/27/18 06/27/18 18:59 06:59 18:59 Intake Total 1000 / 1000 Balance 1000 / 1000 Intake: IV 1000 / 1000 NS Inj 1,000 ML @ 100 mls/hr IV 1000 / 1000 .CONT .Q10H [facility] Rx#:[id number] - Constitutional no acute distress - Routine Respiratory Exam Present: CTA bilaterally - Routine Cardiovascular Exam Present: RRR - Routine Abdominal Exam Present: soft - Routine Extremities Exam Comments: no pedal edema. - Routine Neurological Exam Present: alert, oriented X3 Results - Labs CBC & Chem 7: 06/24/18 16:15 06/26/18 04:45 Laboratory Results - last 24 hr 06/25/18 06/26/18 06/26/18 02:00 12:41 18:06 POC Glucose 231 H 365 H Urine Color Yellow Urine Clarity Hazy H Urine pH 5.0 Ur Specific [place] 1.018 Urine Protein 100 H Urine Glucose (UA) Negative Urine Ketones Trace H Urine Occult Blood Small H Urine Nitrate Negative Urine Bilirubin Negative Urine Urobilinogen 2.0 H Ur Leukocyte Esterase Trace H Urine RBC 1 Urine WBC 8 H Ur Squamous Epith Cells <1 Urine Bacteria Moderate H Urine Mucus Few H Micro UA Comment Culture indicated Urine Culture Comments Culture indicated 06/26/18 06/27/18 20:19 09:38 POC Glucose 349 H 196 H Urine Color Urine Clarity Urine pH Ur Specific [place] Urine Protein Urine Glucose (UA) Urine Ketones Urine Occult Blood Urine Nitrate Urine Bilirubin Urine Urobilinogen Ur Leukocyte Esterase Urine RBC Urine WBC Ur Squamous Epith Cells Urine Bacteria Urine Mucus Micro UA Comment Urine Culture Comments Microbiology 06/25/18 02:00 Clean Catch Urine Urine Culture - Final Escherichia coli - Imaging Impressions Wrist X-Ray 06/26/18 00:00 CONCLUSION: Erosive osteoarthritis. There is widening of the scapholunate distance suggesting scapholunate ligamentous injury which could be chronic in nature. MRI would be needed to further assess if clinically warranted. Wrist X-Ray 06/26/18 00:00 CONCLUSION: Mild erosive osteoarthritis. No acute abnormality. Assessment and Plan - Plan Acute kidney injury -Suspect dehydration with nausea as the main culprit renal function is improving. Generalized weakness -With a history of lupus this may be secondary to deconditioning secondary to sedentary lifestyle secondary to holding back from back from pain secondary to being noncompliant with her medications -PT/OT Diabetes/neuropathy Accu-Cheks, low-dose sliding scale for now, adjust as appropriate -start on Neurontin and Metformin -clinical nurse educator consulted. possible flare-up of RA with elevated ESR/ CRP- seems to be improving - will taper down the prednisone -of note the patient says that she was diagnosed with RA years ago but never had a f/u. -f/u with assistant community director as outpatient and this was d/w the patient at length. Hypertension;overall better controlled- will resume lisinopril upon discharge. UTI; treat with oral antibiotic upon discharge. SCDs; Lovenox subq Discharge Planning: dc home tomorrow.
--- NOTE | 2018-06-27 12:39 | P.DS ---
Date of admission: 06/24/18 18:12 Primary care physician: Courtney Gonzalez MD Brief History from admission: 63-year-old black female being admitted for acute kidney injury and generalized weakness. History is largely provided by the patient's mother and daughter who are at the bedside. Patient herself seems quite fatigued and somnolent at times thus limiting history. Patient was allegedly in her usual state of health until today when the patient' s niece contacted the patient's mother and told her that upon trying to bathe her the patient would scream in pain and began to cry, also reported that her hands appeared puffy. Mother went over to see the patient and noted that when she ever she tried to move her from the bed she would scream in pain. Noted that the patient was slightly tachypneic, patient told her mother that she was "hurting all over." Her bed was found to be soaked in urine and the patient appeared to be quite fatigued. They contacted 911. The patient's mother and daughter both suspect that she is likely been mostly lying in bed, patient has been living alone and usually does not tell anyone that she needs any help. They suspect that she has been like this for the last 3 weeks. They conveyed that she has a strong history of being noncompliant with medications. They say that she recently restarted taking her metformin in terms of the only medication that she is taking at all despite her history of "lupus." Daughter does mention that the patient goes through a "whole bottle" of Aleve in a month for her pain. In the emergency department patient had a chest x-ray done which upon my independent review shows no acute findings. White count was around 14,000. Blood work otherwise was unremarkable except for an acute kidney injury with a creatinine around 1.43. EKG showed mild tachycardia. DS: Medications - Discharge Medications Prescriptions: gabapentin 100 mg PO TID #30 cap insulin aspart U-100 [Novolog U-100 Insulin aspart] 1 sliding scale dose SUBCUT UD 30 Days ml lisinopril 10 mg PO DAILY 30 Days #30 tab metformin 500 mg PO BID 30 Days #60 tab prednisone 5 mg PO DIRECTED 10 Days #10 tab tramadol [Ultram] 50 mg PO Q6H PRN #8 tab PRN Reason: acute pain DS: Summary Hospital Course: patient was admitted with KASSIDY and generalized weakness. she received IV fluid after which her renal function much improved. she was complaining of pain to both wrists. with history of RA ( which wasn't treated before), ESR/CRP were checked with elevated values. on XR she had an evidence of erosive arthritis. she was started on Prednisone and was strongly advised to have a close f/u with her pcp with referral to a technical agronomist within the next week. she was started on Metformin for her diabetes and inclusion special educator consulted. the pain to the wrists and also hand swelling improved after initiation of steroids. - Time Spent with Patient Total time spent providing and/or coordinating discharge services: Less than 30 minutes - Quality: VTE Deep Vein Thrombosis/Pulmonary Embolism Present on Admission: No Exam Vital signs: Vital Signs 06/26/18 16:00 06/26/18 20:00 06/27/18 01:27 Temperature 98.2 F 98.0 F 98.5 F Pulse Rate 101 H 99 H 82 Respiratory Rate 18 18 18 Blood Pressure 180/83 H 205/94 H 167/75 H Pulse Oximetry 99 98 96 06/27/18 04:24 06/27/18 08:37 Temperature 98.9 F 98.1 F Pulse Rate 78 80 Respiratory Rate 19 18 Blood Pressure 163/77 H 172/90 H Pulse Oximetry 95 98 Intake & Output 06/26/18 06/27/18 06/27/18 18:59 06:59 18:59 Intake Total 1000 / 1000 Balance 1000 / 1000 Intake: IV 1000 / 1000 NS Inj 1,000 ML @ 100 mls/hr IV 1000 / 1000 .CONT .Q10H [facility] Rx#:[id number] - Constitutional no acute distress - Routine Respiratory Exam Present: CTA bilaterally - Routine Cardiovascular Exam Present: RRR - Routine Abdominal Exam Present: soft - Routine Extremities Exam Comments: swelling/ tenderness of both wrists seems to be improving. - Routine Neurological Exam Present: alert, oriented X3 Results Procedures completed during hospitalization: none. Labs on day of discharge: Labs from last 24 hours 06/27/18 06/26/18 06/26/18 09:38 20:19 18:06 POC Glucose 196 H 349 H 365 H Urine Color Urine Clarity Urine pH Ur Specific [place] Urine Protein Urine Glucose (UA) Urine Ketones Urine Occult Blood Urine Nitrate Urine Bilirubin Urine Urobilinogen Ur Leukocyte Esterase Urine RBC Urine WBC Ur Squamous Epith Cells Urine Bacteria Urine Mucus Micro UA Comment Urine Culture Comments 06/26/18 06/25/18 12:41 02:00 POC Glucose 231 H Urine Color Yellow Urine Clarity Hazy H Urine pH 5.0 Ur Specific [place] 1.018 Urine Protein 100 H Urine Glucose (UA) Negative Urine Ketones Trace H Urine Occult Blood Small H Urine Nitrate Negative Urine Bilirubin Negative Urine Urobilinogen 2.0 H Ur Leukocyte Esterase Trace H Urine RBC 1 Urine WBC 8 H Ur Squamous Epith Cells <1 Urine Bacteria Moderate H Urine Mucus Few H Micro UA Comment Culture indicated Urine Culture Comments Culture indicated - Impressions ITS Impressions Chest X-Ray 06/24/18 15:59 CONCLUSION: No acute intrathoracic disease. Wrist X-Ray 06/26/18 00:00 CONCLUSION: Erosive osteoarthritis. There is widening of the scapholunate distance suggesting scapholunate ligamentous injury which could be chronic in nature. MRI would be needed to further assess if clinically warranted. Discharge Plan - Physicians Team Primary Care Provider: Courtney Gonzalez Attending Provider: Hossein Le
[2018-06-28] MEDS: Sod Chloride 0.9% Inj 1,000 ML IV.CONT SCH (04:16)
[2018-06-28] MEDS: amLODIPine 5 MG Tablet PO SCH (08:24)
[2018-06-28] MEDS: Gabapentin 100 MG Capsule PO SCH ×3 (08:24→17:58)
[2018-06-28] MEDS: predniSONE 20 MG Tablet PO SCH (08:24)
[2018-06-28] MEDS: Insulin NovoLOG Aspart Correctional Sugar Inj SQ SCH ×4 (08:26→21:09)
--- NOTE | 2018-06-28 09:33 | P.PNIM ---
Subjective Interval history: f/u; uncontrolled hypertension in no acute distress. pain and swelling of the wrists is somewhat better. BP and blood sugar trend noted. PT at the bedside. Physical Exam Vital signs: Vital Signs 06/27/18 12:37 06/27/18 17:08 06/27/18 20:00 Temperature 97.6 F 97.8 F Pulse Rate 98 H 96 H 85 Respiratory Rate 16 20 Blood Pressure 170/90 H 180/91 H Pulse Oximetry 100 96 06/27/18 23:40 06/28/18 03:07 06/28/18 08:00 Temperature 98.1 F 97.7 F 97.3 F L Pulse Rate 89 90 87 Respiratory Rate 18 18 18 Blood Pressure 212/107 H 178/99 H 215/123 H Pulse Oximetry 99 99 100 Intake & Output 06/27/18 06/28/18 06/28/18 18:59 06:59 18:59 Intake Total 1999 1000 / 1000 Output Total 700 / 700 Balance 1999 300 / 300 Intake: IV 1999 1000 / 1000 NS Inj 1,000 ML @ 100 mls/hr IV 1999 1000 / 1000 .CONT .Q10H [facility] Rx#:[id number] Output: Urine 700 / 700 - Constitutional no acute distress - Routine Respiratory Exam Present: CTA bilaterally - Routine Cardiovascular Exam Present: RRR - Routine Abdominal Exam Present: soft - Routine Extremities Exam Comments: no pedal edema- swelling of the wrists seems to be improving. - Routine Neurological Exam Present: alert, oriented X3 Results - Labs CBC & Chem 7: 06/24/18 16:15 06/26/18 04:45 Laboratory Results - last 24 hr 06/27/18 06/27/18 06/27/18 09:38 12:52 17:56 POC Glucose 196 H 159 H 262 H 06/27/18 06/28/18 20:54 08:23 POC Glucose 314 H 108 Microbiology 06/25/18 02:00 Clean Catch Urine Urine Culture - Final Escherichia coli - Procedures none. Assessment and Plan - Plan Acute kidney injury -Suspect dehydration with nausea as the main culprit renal function is improving. Generalized weakness -With a history of lupus this may be secondary to deconditioning secondary to sedentary lifestyle secondary to holding back from back from pain secondary to being noncompliant with her medications -PT/OT Diabetes/neuropathy Accu-Cheks, low-dose sliding scale for now, adjust as appropriate -started on Neurontin- -A1c pending. -consumer educator consulted. possible flare-up of RA with elevated ESR/ CRP- seems to be improving - continue prednisone . -of note the patient says that she was diagnosed with RA years ago but never had a f/u. -f/u with processing rep as outpatient and this was d/w the patient at length. Hypertensive urgency- BP is back up @ 210/120 range- will stop Amlodipine- will start on Procardia- clonidine prn will resume lisinopril upon discharge if renal function stable. will continue to monitor the BP closely. UTI with e-coli; start on Cipro SCDs; Lovenox subq Discharge Planning: BP is not controlled- her BP regimen will be adjusted today. BP needs to be monitored closely- not ready for discharge today.
[2018-06-28] MEDS: Ciprofloxacin 250 MG Tablet PO SCH ×2 (12:51→20:32)
[2018-06-28 14:55] LABS: Hemoglobin A1c 8.6 % (4.3-6.0)
[2018-06-29 05:25] LABS: Baso % (Auto) 0.3 % (0.0-2.0); Eos # (Auto) 0.2 th/mm3 (0.0-0.4); Eos % (Auto) 1.8 % (0.0-4.0); Hematocrit 32.7 % (35.0-46.0); Hemoglobin 10.6 gm/dL (11.6-15.3); Lymph # (Auto) 3.4 th/mm3 (1.0-4.8); Lymph % (Auto) 30.5 % (9.0-44.0); Mean Corpuscular HGB Conc 32.3 % (32.0-36.0); Mean Corpuscular Hemoglobin 26.9 pg (27.0-34.0); Mean Corpuscular Volume 83.4 fL (80.0-100.0); Mean Platelet Volume 8.7 fL (7.0-11.0); Neut # (Auto) 6.6 th/mm3 (1.8-7.7); Neut % (Auto) 58.4 % (16.0-70.0); Platelet Count 378 th/mm3 (150-450); Red Blood Count 3.92 mil/mm3 (4.00-5.30); Red Cell Distribution Width 14.4 % (11.6-17.2); White Blood Count 11.2 th/mm3 (4.0-11.0)
[2018-06-29 05:53] LABS: Calcium 8.2 mg/dL (8.5-10.1); Carbon Dioxide 26.1 meq/L (21.0-32.0); Potassium 3.6 meq/L (3.5-5.1)
[2018-06-29] MEDS: Ciprofloxacin 250 MG Tablet PO SCH ×2 (08:27→21:01)
[2018-06-29] MEDS: Insulin NovoLOG Aspart Correctional Sugar Inj SQ SCH ×4 (08:27→21:02)
[2018-06-29] MEDS: predniSONE 10 MG Tablet PO SCH (08:27)
[2018-06-29] MEDS: Gabapentin 100 MG Capsule PO SCH ×3 (08:27→18:31)
--- NOTE | 2018-06-29 09:15 | P.PNIM ---
Subjective Interval history: in no acute distress. no new complaints. BP and blood sugar trend noted. Physical Exam Vital signs: Vital Signs 06/28/18 12:00 06/28/18 12:48 06/28/18 16:00 Temperature 97.7 F 97.7 F Pulse Rate 96 H 86 Respiratory Rate 18 18 Blood Pressure 167/89 H 158/90 H 172/83 H Pulse Oximetry 100 100 06/28/18 19:27 06/28/18 20:00 06/28/18 23:23 Temperature 98.1 F 98.2 F Pulse Rate 101 H 99 H 81 Respiratory Rate 18 18 Blood Pressure 176/95 H 192/85 H Pulse Oximetry 98 100 06/29/18 00:00 06/29/18 01:07 06/29/18 03:06 Temperature 98.1 F Pulse Rate 91 H 87 Respiratory Rate 16 18 Blood Pressure 189/86 H Pulse Oximetry 95 06/29/18 04:24 06/29/18 06:13 06/29/18 07:32 Temperature 97.5 F L Pulse Rate 84 99 H 80 Respiratory Rate 12 Blood Pressure 163/81 H 135/75 Pulse Oximetry 100 Intake & Output 06/28/18 06/29/18 06/29/18 18:59 06:59 18:59 Intake Total 200 / 200 Output Total 300 / 300 Balance -100 / -100 Intake: IV 200 / 200 NS Inj 1,000 ML @ 100 mls/hr IV 200 / 200 .CONT .Q10H [facility] Rx#:[id number] Output: Urine 300 / 300 - Constitutional no acute distress - Routine Respiratory Exam Present: CTA bilaterally - Routine Cardiovascular Exam Present: RRR - Routine Abdominal Exam Present: soft - Routine Extremities Exam Comments: no pedal edema/ mild swelling of both wrists. - Routine Neurological Exam Present: alert, oriented X3 Results - Labs CBC & Chem 7: 06/29/18 04:28 06/29/18 04:28 Laboratory Results - last 24 hr 06/28/18 06/28/18 06/28/18 10:41 11:00 12:43 WBC RBC Hgb Hct MCV MCH MCHC RDW Plt Count MPV Neut % (Auto) Lymph % (Auto) [place] % (Auto) Eos % (Auto) Baso % (Auto) Neut # (Auto) Lymph # (Auto) [place] # (Auto) Eos # (Auto) Baso # (Auto) WBC Differential Differential Comment Sodium Potassium Chloride Carbon Dioxide Anion Gap BUN Creatinine Estimated GFR POC Glucose 148 H 179 H Random Glucose Hemoglobin A1c 8.6 H Calcium 06/28/18 06/28/18 06/29/18 18:05 20:35 02:47 WBC RBC Hgb Hct MCV MCH MCHC RDW Plt Count MPV Neut % (Auto) Lymph % (Auto) [place] % (Auto) Eos % (Auto) Baso % (Auto) Neut # (Auto) Lymph # (Auto) [place] # (Auto) Eos # (Auto) Baso # (Auto) WBC Differential Differential Comment Sodium Potassium Chloride Carbon Dioxide Anion Gap BUN Creatinine Estimated GFR POC Glucose 245 H 233 H 177 H Random Glucose Hemoglobin A1c Calcium 06/29/18 06/29/18 06/29/18 04:28 04:28 07:44 WBC 11.2 H RBC 3.92 L Hgb 10.6 L Hct 32.7 L MCV 83.4 MCH 26.9 L MCHC 32.3 RDW 14.4 Plt Count 378 MPV 8.7 Neut % (Auto) 58.4 Lymph % (Auto) 30.5 [place] % (Auto) 9.0 H Eos % (Auto) 1.8 Baso % (Auto) 0.3 Neut # (Auto) 6.6 Lymph # (Auto) 3.4 [place] # (Auto) 1.0 H Eos # (Auto) 0.2 Baso # (Auto) 0.0 WBC Differential . Differential Comment Auto diff final Sodium 139 Potassium 3.6 Chloride 105 Carbon Dioxide 26.1 Anion Gap 8 BUN 25 H Creatinine 1.22 H Estimated GFR 54 L POC Glucose 198 H Random Glucose 159 H Hemoglobin A1c Calcium 8.2 L - Procedures none. Assessment and Plan - Plan Acute kidney injury -Suspect dehydration with nausea as the main culprit -lisinopril on hold. renal function is improving. Generalized weakness -With a history of lupus this may be secondary to deconditioning secondary to sedentary lifestyle secondary to holding back from back from pain secondary to being noncompliant with her medications -PT/OT Diabetes/neuropathy Accu-Cheks, low-dose sliding scale for now, adjust as appropriate -started on Neurontin- -A1c 8.6. -childbirth educator consulted. possible flare-up of RA with elevated ESR/ CRP- seems to be improving - continue prednisone . -of note the patient says that she was diagnosed with RA years ago but never had a f/u. -f/u with cone chocolate dipper as outpatient and this was d/w the patient at length. Hypertensive urgency- BP is better. started on Procardia- clonidine prn will continue to monitor the BP closely. UTI with e-coli; started on Cipro SCDs; Lovenox subq Discharge Planning: dc home within the next 24 hrs if BP remains stable. no benefit for HHC or rehab. d/w the case management.
[2018-06-30] MEDS: Gabapentin 100 MG Capsule PO SCH ×3 (10:58→18:31)
[2018-06-30] MEDS: predniSONE 10 MG Tablet PO SCH (10:58)
[2018-06-30] MEDS: Insulin NovoLOG Aspart Correctional Sugar Inj SQ SCH ×4 (10:58→21:28)
[2018-06-30] MEDS: Ciprofloxacin 250 MG Tablet PO SCH ×2 (11:02→20:45)
--- NOTE | 2018-06-30 12:02 | P.PN ---
Subjective Interval history: Patient is seen in room working with GLASS MELT OPERATOR and RN. She got up to the commode without any significant dizziness or faintness. No new complaints or concerns. RN did notice that second digit of left foot appears to have a recently healed wound but is also surrounded by very dark skin. Patient does say that she recently scraped that toe and that she also has a history of poorly healing wounds to her diabetes. Denies any significant pain but does acknowledge that she has neuropathy. Physical Exam Vital signs: Vital Signs 06/29/18 12:00 06/29/18 15:38 06/29/18 17:17 Temperature 97.5 F L 97.9 F 98.6 F Pulse Rate 99 H 106 H 100 H Respiratory Rate 16 16 16 Blood Pressure 165/88 H 146/80 H 161/83 H Pulse Oximetry 100 99 99 06/29/18 20:00 06/29/18 21:45 06/30/18 00:00 Temperature 98.4 F 98.8 F Pulse Rate 108 H 96 H 107 H Respiratory Rate 18 17 Blood Pressure 147/69 H 155/82 H Pulse Oximetry 100 100 06/30/18 04:00 06/30/18 08:00 Temperature 98.4 F 97.6 F Pulse Rate 112 H 103 H Respiratory Rate 17 12 Blood Pressure 138/78 147/89 H Pulse Oximetry 95 99 Intake & Output 06/29/18 06/30/18 06/30/18 18:59 06:59 18:59 Other: # Voids 4 Date of Last Bowel Movement 06/29/18 06/29/18 06/29/18 # Bowel Movements 2 Narrative: GENERAL: Obese, well-developed adult female in no obvious distress SKIN: Warm and dry. Left second toe has area of darkened skin and partially healed wound. CARDIOVASCULAR: Tachycardic rate, regular rhythm, no lower extremity edema RESPIRATORY: No accessory muscle use. Clear to auscultation. Breath sounds equal bilaterally. GASTROINTESTINAL: Abdomen soft, non-tender, nondistended. Extremities: No clubbing, cyanosis, or edema. No obvious deformities. MUSCULOSKELETAL: adequate muscle bulk and tone for age and habitus. NEUROLOGICAL: No facial droop nor slurred speech noted. Alert and oriented x3, intact insight. PSYCHIATRIC: Appropriate mood and affect; insight and judgment normal. Results - Labs CBC & Chem 7: 06/29/18 04:28 06/29/18 04:28 Laboratory Results - last 24 hr 06/29/18 06/29/18 06/29/18 12:13 17:56 20:55 POC Glucose 198 H 277 H 176 H 06/30/18 06/30/18 08:06 11:26 POC Glucose 160 H 203 H - Procedures none. Assessment and Plan - Plan Acute kidney injury -Suspect dehydration with nausea as the main culprit -lisinopril on hold. renal function is improving. Generalized weakness -With a history of lupus this may be secondary to deconditioning secondary to sedentary lifestyle secondary to holding back from back from pain secondary to being noncompliant with her medications -PT/OT Diabetes/neuropathy Accu-Cheks, low-dose sliding scale for now, adjust as appropriate -started on Neurontin- -A1c 8.6. -cosmetology educator consulted. possible flare-up of RA with elevated ESR/ CRP- seems to be improving - continue prednisone . -of note the patient says that she was diagnosed with RA years ago but never had a f/u. -f/u with director of product marketing as outpatient and this was d/w the patient at length. Hypertensive urgency- BP is better. started on Procardia- clonidine prn will continue to monitor the BP closely. UTI with e-coli; started on Cipro 06/28. Will send out with orals when transferred if needed. Left second toe wound -X-ray ordered to evaluate and rule out infection. -Patient will need to see outpatient podiatry SCDs; Meggan subq Discharge Planning: We will likely discharge to [facility] Sunday a.m. if cleared by insurance Initially thought to have no benefit no benefit for HHC or rehab; now found to have SNF/rehab benefit.
--- NOTE | 2018-06-30 16:03 | XR ---
EXAM DATE: 06/30/2018 12:00 AM EDT AGE/SEX: 63 years / Female INDICATIONS: Left second digit bruising from stubbing toe. CLINICAL DATA: This is the patient's subsequent encounter. Patient reports that signs and symptoms h ave been present for 4 - 6 days and indicates a pain score of 5/10. MEDICAL/SURGICAL HISTORY: Congestive heart failure. Diabetes mellitus type II. Arthritis. Non e. COMPARISON: No prior exams available for comparison. FINDINGS: Bony structures are intact and in normal alignment. Joints are intact without dislocation or signifi cant arthropathy. Osseous density is normal. Soft tissues are unremarkable. No radiopaque foreign bodies seen. CONCLUSION: 1. No acute fracture. Electronically signed by: Abdiel Joseph MD 06/30/2018 4:01 PM EDT
[2018-07-01 09:23] VITALS: BP 171/82; PULSE 90; RESP 18; TEMP 97.6; O2SAT 100
--- NOTE | 2018-07-01 09:27 | P.PN ---
Subjective Interval history: Patient is seen lying in bed waiting for breakfast. She tells me that she is ready to go with no new complaints or concerns. No chest pain or shortness of breath. No nausea vomiting or diarrhea. Physical Exam Vital signs: Vital Signs 06/30/18 12:00 06/30/18 16:00 06/30/18 20:00 Temperature 97.9 F 98.5 F 98.2 F Pulse Rate 96 H 99 H 106 H Respiratory Rate 12 12 17 Blood Pressure 148/78 H 164/88 H 156/86 H Pulse Oximetry 100 100 97 07/01/18 00:00 07/01/18 00:30 07/01/18 04:00 Temperature 97.8 F 98 F Pulse Rate 98 H 90 97 H Respiratory Rate 17 17 Blood Pressure 153/84 H 166/84 H Pulse Oximetry 99 97 07/01/18 09:22 Temperature 97.6 F Pulse Rate 90 Respiratory Rate 18 Blood Pressure 171/82 H Pulse Oximetry 100 Intake & Output 06/30/18 07/01/18 07/01/18 18:59 06:59 18:59 Intake Total 480 / 480 Balance 480 / 480 Intake: Oral 480 / 480 Other: # Voids 4 4 Date of Last Bowel Movement 06/29/18 06/30/18 # Bowel Movements 2 Narrative: GENERAL: Obese, well-developed adult female in no obvious distress SKIN: Warm and dry. Left second toe has area of darkened skin and partially healed wound. CARDIOVASCULAR: Tachycardic rate, regular rhythm, no lower extremity edema RESPIRATORY: No accessory muscle use. Clear to auscultation. Breath sounds equal bilaterally. GASTROINTESTINAL: Abdomen soft, non-tender, nondistended. Extremities: No clubbing, cyanosis, or edema. No obvious deformities. MUSCULOSKELETAL: adequate muscle bulk and tone for age and habitus. NEUROLOGICAL: No facial droop nor slurred speech noted. Alert and oriented x3, intact insight. PSYCHIATRIC: Appropriate mood and affect; insight and judgment normal. Results - Labs CBC & Chem 7: 06/29/18 04:28 06/29/18 04:28 Laboratory Results - last 24 hr 06/30/18 06/30/18 06/30/18 11:26 16:16 21:23 POC Glucose 203 H 276 H 216 H 07/01/18 08:35 POC Glucose 145 H - Imaging Impressions Toe X-Ray 06/30/18 00:00 CONCLUSION: 1. No acute fracture. - Procedures none. Assessment and Plan - Plan Acute kidney injury -Suspect dehydration with nausea as the main culprit -Stop lisinopril. renal function is improving. Generalized weakness -With a history of lupus this may be secondary to deconditioning secondary to sedentary lifestyle secondary to holding back from back from pain secondary to being noncompliant with her medications -PT/OT Diabetes/neuropathy Accu-Cheks, low-dose sliding scale for now, adjust as appropriate -started on Neurontin- -A1c 8.6. -perioperative educator consulted. possible flare-up of RA with elevated ESR/ CRP- seems to be improving - continue prednisone . -of note the patient says that she was diagnosed with RA years ago but never had a f/u. -f/u with compressed gas plant worker as outpatient and this was d/w the patient at length. Hypertensive urgency- BP is better. started on Procardia- clonidine prn. Hypertension poorly controlled on previous lisinopril. We will continue Procardia at discharge. will continue to monitor the BP closely. UTI with e-coli; started on Cipro 06/28. Will send out with orals when transferred if needed. Left second toe wound -X-ray ordered to evaluate and rule out infection- x-ray was normal -Patient will need to see outpatient podiatry ANGIEs; Meggan subceleste Discharge Planning: We will likely discharge to [facility] Sunday a.m. if cleared by insurance Initially thought to have no benefit no benefit for C or rehab; now found to have SNF/rehab benefit.
--- NOTE | 2018-07-01 09:27 | P.DS ---
Date of admission: 06/28/18 13:22 Primary care physician: Courtney Gonzalez MD Attending physician on discharge: Pita Agustin Anticipated date of discharge: 07/01/18 Brief History from admission: 63-year-old black female being admitted for acute kidney injury and generalized weakness. History is largely provided by the patient's mother and daughter who are at the bedside. Patient herself seems quite fatigued and somnolent at times thus limiting history. Patient was allegedly in her usual state of health until today when the patient' s niece contacted the patient's mother and told her that upon trying to bathe her the patient would scream in pain and began to cry, also reported that her hands appeared puffy. Mother went over to see the patient and noted that when she ever she tried to move her from the bed she would scream in pain. Noted that the patient was slightly tachypneic, patient told her mother that she was "hurting all over." Her bed was found to be soaked in urine and the patient appeared to be quite fatigued. They contacted 911. The patient's mother and daughter both suspect that she is likely been mostly lying in bed, patient has been living alone and usually does not tell anyone that she needs any help. They suspect that she has been like this for the last 3 weeks. They conveyed that she has a strong history of being noncompliant with medications. They say that she recently restarted taking her metformin in terms of the only medication that she is taking at all despite her history of "lupus." Daughter does mention that the patient goes through a "whole bottle" of Aleve in a month for her pain. In the emergency department patient had a chest x-ray done which upon my independent review shows no acute findings. White count was around 14,000. Blood work otherwise was unremarkable except for an acute kidney injury with a creatinine around 1.43. EKG showed mild tachycardia. DS: Diagnosis - Discharge Diagnosis (1) Self-care deficit in patient living alone Status: Chronic (2) KASSIDY (acute kidney injury) Status: Resolved (3) UTI (urinary tract infection) Status: Acute (4) Dehydration Status: Resolved (5) Hypertension, uncontrolled Status: Chronic (6) Noncompliance with medication regimen Status: Chronic DS: Medications - Discharge Medications Prescriptions: ciprofloxacin HCl 250 mg PO Q12HR #10 tab gabapentin 100 mg PO TID #30 cap insulin aspart U-100 [Novolog U-100 Insulin aspart] 1 sliding scale dose SUBCUT UD 30 Days ml metformin 500 mg PO BID 30 Days #60 tab nifedipine 30 mg PO DAILY #30 tab prednisone 5 mg PO DIRECTED 10 Days #10 tab DS: Summary Hospital Course: Patient is a 63-year-old -[place] female who was brought in for pain and confusion. She has a past medical history of rheumatoid arthritis, diabetes and hypertension. She lives alone and per report of family and friends frequently neglects herself. She was found to have an acute kidney injury and UTI at admit. UTI treated with Cipro. Kidney function improved with gentle IVF /rehydration. Blood pressure was uncontrolled; patient was previously on lisinopril 2.5. Lisinopril held due to kidney injury and patient was changed to Procardia with good results. Pain at admit likely related to RA flareup indicated by elevated ESR/CR P. Treated with short course of prednisone. Diabetes appears stable and well controlled with A1c 8.6. She does have some neuropathy and would likely benefit from ongoing Neurontin. - Time Spent with Patient Total time spent providing and/or coordinating discharge services: Less than 30 minutes - Quality: VTE Deep Vein Thrombosis/Pulmonary Embolism Present on Admission: No Exam Vital signs: Vital Signs 06/30/18 12:00 06/30/18 16:00 06/30/18 20:00 Temperature 97.9 F 98.5 F 98.2 F Pulse Rate 96 H 99 H 106 H Respiratory Rate 12 12 17 Blood Pressure 148/78 H 164/88 H 156/86 H Pulse Oximetry 100 100 97 07/01/18 00:00 07/01/18 00:30 07/01/18 04:00 Temperature 97.8 F 98 F Pulse Rate 98 H 90 97 H Respiratory Rate 17 17 Blood Pressure 153/84 H 166/84 H Pulse Oximetry 99 97 07/01/18 09:22 Temperature 97.6 F Pulse Rate 90 Respiratory Rate 18 Blood Pressure 171/82 H Pulse Oximetry 100 Intake & Output 06/30/18 07/01/18 07/01/18 18:59 06:59 18:59 Intake Total 480 / 480 Balance 480 / 480 Intake: Oral 480 / 480 Other: # Voids 4 4 Date of Last Bowel Movement 06/29/18 06/30/18 # Bowel Movements 2 Narrative: GENERAL: Obese, well-developed adult female in no obvious distress SKIN: Warm and dry. Left second toe has area of darkened skin and partially healed wound. CARDIOVASCULAR: Tachycardic rate, regular rhythm, no lower extremity edema RESPIRATORY: No accessory muscle use. Clear to auscultation. Breath sounds equal bilaterally. GASTROINTESTINAL: Abdomen soft, non-tender, nondistended. Extremities: No clubbing, cyanosis, or edema. No obvious deformities. MUSCULOSKELETAL: adequate muscle bulk and tone for age and habitus. NEUROLOGICAL: No facial droop nor slurred speech noted. Alert and oriented x3, intact insight. PSYCHIATRIC: Appropriate mood and affect; insight and judgment normal. Results Procedures completed during hospitalization: none. Labs on day of discharge: Labs from last 24 hours 07/01/18 06/30/18 06/30/18 08:35 21:23 16:16 POC Glucose 145 H 216 H 276 H 06/30/18 11:26 POC Glucose 203 H - Impressions ITS Impressions Chest X-Ray 06/24/18 15:59 CONCLUSION: No acute intrathoracic disease. Wrist X-Ray 06/26/18 00:00 CONCLUSION: Erosive osteoarthritis. There is widening of the scapholunate distance suggesting scapholunate ligamentous injury which could be chronic in nature. MRI would be needed to further assess if clinically warranted. Toe X-Ray 06/30/18 00:00 CONCLUSION: 1. No acute fracture. Discharge Plan - Discharge Disposition Patient Disposition: Discharge to SNF - Discharge Condition Condition: Stable - Discharge Order Discharge Orders: Discharge Order (Routine); Ordered 07/01/18 Ordered By: Christina Rubalcava - Physicians Team Primary Care Provider: Courtney Gonzalez Attending Provider: Pita Agsutin Other Providers: [facility],Agency ; [facility],Agency
[2018-07-01] MEDS: Ciprofloxacin 250 MG Tablet PO SCH (10:40)
[2018-07-01] MEDS: predniSONE 10 MG Tablet PO SCH (10:40)
[2018-07-01] MEDS: Gabapentin 100 MG Capsule PO SCH (10:40)
[2018-07-01] MEDS: Insulin NovoLOG Aspart Correctional Sugar Inj SQ SCH (10:41)
== END 2018-07-01 13:11 ==
LOC: NEDA 15:09 → NEPC 15:09 → NEDA 19:30 → NEPGCP 20:00 → N06 06-29 16:30
PROVIDERS: ADMIT Family Medicine; ATTEND Family Medicine

== ENCOUNTER 2018-07-15 16:45 | Inpatient (IN) ==
[2018-07-15] MEDS ORDERED: Vancomycin Inj 1,000 MG in Sodium Chlor 0.9% Inj 250 ML IV.SIG STA (17:04)
[2018-07-15] MEDS ORDERED: Piperacil/Tazo 4.5 GM Premix 4.5 GM/100 ML BAG IV.SIG STA (17:04)
--- NOTE | 2018-07-15 17:21 | XR ---
EXAM DATE: 07/15/2018 5:17 PM EDT AGE/SEX: 63 years / Female INDICATIONS: Fever CLINICAL DATA: This is the patient's initial encounter. Patient reports that signs and symptoms have been present for 1 day and indicates a pain score of 0/10. MEDICAL/SURGICAL HISTORY: Chronic obstructive pulmonary disease. Diabetes mellitus type II. No ne. COMPARISON: [facility] [place], CHEST 1V SINGLE AP, 06/24/2018. . FINDINGS: A single AP view of the chest demonstrates the lungs to be symmetrically aerated without evidence of mass, infiltrate or effusion. The cardiomediastinal contours are unremarkable. Osseous structures a re intact. CONCLUSION: Negative examination. Electronically signed by: Nathan Hernandez MD 07/15/2018 5:20 PM EDT
[2018-07-15 17:23] LABS: Baso % (Auto) 0.2 % (0.0-2.0); Eos % (Auto) 0.1 % (0.0-4.0); Hematocrit 35.3 % (35.0-46.0); Hemoglobin 11.7 gm/dL (11.6-15.3); Lymph # (Auto) 1.3 th/mm3 (1.0-4.8); Lymph % (Auto) 7.1 % (9.0-44.0); Mean Corpuscular HGB Conc 33.1 % (32.0-36.0); Mean Corpuscular Hemoglobin 27.4 pg (27.0-34.0); Mean Corpuscular Volume 82.7 fL (80.0-100.0); Mean Platelet Volume 9.4 fL (7.0-11.0); Mono # (Auto) 1.5 th/mm3 (0.0-0.9); Mono % (Auto) 8.2 % (0.0-8.0); Neut # (Auto) 15.9 th/mm3 (1.8-7.7); Neut % (Auto) 84.4 % (16.0-70.0); Platelet Count 361 th/mm3 (150-450); Red Blood Count 4.27 mil/mm3 (4.00-5.30); Red Cell Distribution Width 15.5 % (11.6-17.2); White Blood Count 18.9 th/mm3 (4.0-11.0)
[2018-07-15] MEDS ORDERED: Acetaminophen 325 MG Tablet PO ONE (17:32)
--- NOTE | 2018-07-15 17:32 | ED ---
HPI General Chief Complaint: Chest Pain Stated Complaint: Chest pain Time Seen by Provider: 07/15/18 16:47 Source: patient and family Mode of arrival: EMS Limitations: other (poor historian) History of Present Illness HPI narrative: 63-year-old female presents with chest pain and for fever with cough over the past 3 days. She presents from the senior care. Her EKG showed mild ST elevations but only in limited leads. Patient denies following with a health support specialist. Her family states that she had heart workup may be 10 or 12 years ago but they do not recall. Patient denies other specific complaints but is an overall poor historian. MD complaint: Reports chest pain Related Data Home Medications Medication Instructions Recorded Confirmed glyburide 2.5 mg PO BID 07/15/18 07/15/18 metformin [Glucophage] 1,000 mg PO DAILY 07/15/18 07/15/18 Previous Rx's Medication Instructions Recorded gabapentin 100 mg PO TID #30 cap 06/27/18 insulin aspart U-100 [Novolog 1 sliding scale dose SUBCUT UD 30 06/27/18 U-100 Insulin aspart] Days ml metformin 500 mg PO BID 30 Days #60 tab 06/27/18 nifedipine 30 mg PO DAILY #30 tab 07/01/18 Allergies Allergy/AdvReac Type Severity Reaction Status Date / Time No Known Allergies Allergy Verified 07/15/18 16:58 Review of Systems ROS: all other systems reviewed are negative [facility] [place] Medical History Medical History CHF (congestive heart failure) (Acute) Diabetes (Acute) Lupus (Acute) Rheumatoid arthritis (Acute) Surgical History Surgical History Surgical history unknown (Acute) Family History Family History Other Diabetes Social History Social History Substance History: No History of Abuse Second Hand Smoke Exposure: No Smoking Status: Never smoker How Often Do You Have a Drink Containing Alcohol: Never Recent Travel in [facility] within the Last 8 Weeks: No Recent Out of Country Travel within the Last 8 Weeks: No Immunization History Tetanus Immunization: Unsure Exam Narrative Exam Narrative: GENERAL: 63 y/o female in no apparent distress SKIN: Focused skin assessment warm/dry. HEAD: Atraumatic. Normocephalic. EYES: Pupils equal and round. No scleral icterus. No injection or drainage. ENT: No nasal bleeding or discharge, Mucous membranes pink and moist. NECK: Trachea midline. CARDIOVASCULAR: Tachycardic rate which appears regular RESPIRATORY: No accessory muscle use. Clear to auscultation. Breath sounds equal bilaterally. GASTROINTESTINAL: Abdomen soft, non-tender, nondistended. MUSCULOSKELETAL: No obvious deformities. No clubbing. No cyanosis. NEUROLOGICAL: Awake. moves extremities. Normal speech. Course Consultations Consultation #1: dr martin agrees likely rate related changes, follow labs Initial Documented Vital Signs Temperature 99.2 F 07/15/18 16:49 Pulse Rate 145 H 07/15/18 16:49 Respiratory Rate 24 07/15/18 16:49 Blood Pressure 123/81 07/15/18 16:49 Pulse Oximetry 100 07/15/18 16:49 Last Documented Vital Signs Temperature 98.9 F 07/16/18 04:00 Pulse Rate 108 H 07/16/18 04:00 Respiratory Rate 16 07/16/18 04:00 Blood Pressure 137/72 07/16/18 04:00 Pulse Oximetry 100 07/16/18 04:00 Sign Out Sign Out Data: Patient Sign Out occurred on 07/15/18 at 19:40. Patient's care was discussed, and care was transferred from Leonora Ontiveros MD to Evon Choi. Sign Out Comment: please follow cts, bnp and admit Last updated by Leonora Ontiveros MD at 07/15/18 18:56 Medical Decision Making MDM Narrative Medical decision making narrative: EKG changes are likely rate related. Will dose with small dose IV fluids given history of heart failure while awaiting initial testing and placed on broad-spectrum antibiotics. Will provide with Tylenol for fever and closely monitor. Medical Screen Exam Complete: Yes Emergency Medical Condition: Yes Differential Diagnosis Differential Diagnosis: Sepsis, UTI, pneumonia, CHF, A. fib, SVT, MO Medical Records Medical records reviewed: Yes I reviewed the patient's medical records. Patient here 2 weeks ago with UTI and acute kidney injury, prior EKG reviewed Lab Data Result diagrams: 07/15/18 17:06 07/15/18 17:06 Lab Results 07/15/18 07/15/18 07/15/18 Range/Units 17:06 17:06 17:06 WBC 18.9 H (4.0-11.0) th/mm3 RBC 4.27 (4.00-5.30) mil/mm3 Hgb 11.7 (11.6-15.3) gm/dL Hct 35.3 (35.0-46.0) % MCV 82.7 (80.0-100.0) fL MCH 27.4 (27.0-34.0) pg MCHC 33.1 (32.0-36.0) % RDW 15.5 (11.6-17.2) % Plt Count 361 (150-450) th/mm3 MPV 9.4 (7.0-11.0) fL Neut % (Auto) 84.4 H (16.0-70.0) % Lymph % (Auto) 7.1 L (9.0-44.0) % [place] % (Auto) 8.2 H (0.0-8.0) % Eos % (Auto) 0.1 (0.0-4.0) % Baso % (Auto) 0.2 (0.0-2.0) % Neut # (Auto) 15.9 H (1.8-7.7) th/mm3 Lymph # (Auto) 1.3 (1.0-4.8) th/mm3 [place] # (Auto) 1.5 H (0.0-0.9) th/mm3 Eos # (Auto) 0.0 (0.0-0.4) th/mm3 Baso # (Auto) 0.0 (0.0-0.2) th/mm3 WBC Differential . Differential Comment Auto diff final PT 10.5 (9.8-11.6) sec INR 1.0 Ratio APTT 33.5 H (24.3-30.1) sec Sodium 139 (136-145) meq/L Potassium 4.5 (3.5-5.1) meq/L Chloride 106 (98-107) meq/L Carbon Dioxide 23.7 (21.0-32.0) meq/L Anion Gap 9 (5-15) meq/L BUN 26 H (7-18) mg/dL Creatinine 1.14 H (0.50-1.00) mg/dL Estimated GFR 59 L (>89) mL/min Random Glucose 89 (74-106) mg/dL Lactic Acid (0.4-2.0) mmol/L Calcium 8.4 L (8.5-10.1) mg/dL Magnesium 2.0 (1.5-2.5) mg/dL Total Bilirubin 0.7 (0.2-1.0) mg/dL AST 23 (15-37) U/L ALT 19 (10-53) U/L Alkaline Phosphatase 68 (45-117) U/L Total Creatine Kinase 215 H (26-192) U/L CK-MB (CK-2) 1.1 (0.5-3.6) ng/mL CK-MB (CK-2) % 0.5 (0.0-4.0) % Troponin I Less than 0.02 L (0.02-0.05) ng/mL B-Natriuretic Peptide (0-100) pg/mL Total Protein 8.0 (6.4-8.2) g/dL Albumin 2.3 L (3.4-5.0) g/dL Lipase 132 (73-393) U/L Urine Color (Yellw/Straw) Urine Clarity (Clear) Urine pH (5.0-8.5) Ur Specific [place] (1.002-1.035) Urine Protein (Neg-Trace) mg/dL Urine Glucose (UA) (Negative) mg/dL Urine Ketones (Negative) mg/dL Urine Occult Blood (Negative) Urine Nitrate (Negative) Urine Bilirubin (Negative) Urine Urobilinogen (Less than 2) mg/dL Ur Leukocyte Esterase (Negative) Urine RBC (0-3) /hpf Urine WBC (0-5) /hpf Ur Squamous Epith Cells (0-5) /hpf Amorphous Sediment (None) /hpf Urine Mucus (Occasional) /lpf Micro UA Comment Ur Microscopic Review Urine Culture Comments 07/15/18 07/15/18 07/15/18 Range/Units 17:06 17:06 17:29 WBC (4.0-11.0) th/mm3 RBC (4.00-5.30) mil/mm3 Hgb (11.6-15.3) gm/dL Hct (35.0-46.0) % MCV (80.0-100.0) fL MCH (27.0-34.0) pg MCHC (32.0-36.0) % RDW (11.6-17.2) % Plt Count (150-450) th/mm3 MPV (7.0-11.0) fL Neut % (Auto) (16.0-70.0) % Lymph % (Auto) (9.0-44.0) % [place] % (Auto) (0.0-8.0) % Eos % (Auto) (0.0-4.0) % Baso % (Auto) (0.0-2.0) % Neut # (Auto) (1.8-7.7) th/mm3 Lymph # (Auto) (1.0-4.8) th/mm3 [place] # (Auto) (0.0-0.9) th/mm3 Eos # (Auto) (0.0-0.4) th/mm3 Baso # (Auto) (0.0-0.2) th/mm3 WBC Differential Differential Comment PT (9.8-11.6) sec INR Ratio APTT (24.3-30.1) sec Sodium (136-145) meq/L Potassium (3.5-5.1) meq/L Chloride (98-107) meq/L Carbon Dioxide (21.0-32.0) meq/L Anion Gap (5-15) meq/L BUN (7-18) mg/dL Creatinine (0.50-1.00) mg/dL Estimated GFR (>89) mL/min Random Glucose (74-106) mg/dL Lactic Acid 2.5 H (0.4-2.0) mmol/L Calcium (8.5-10.1) mg/dL Magnesium (1.5-2.5) mg/dL Total Bilirubin (0.2-1.0) mg/dL AST (15-37) U/L ALT (10-53) U/L Alkaline Phosphatase (45-117) U/L Total Creatine Kinase (26-192) U/L CK-MB (CK-2) (0.5-3.6) ng/mL CK-MB (CK-2) % (0.0-4.0) % Troponin I (0.02-0.05) ng/mL B-Natriuretic Peptide 85 (0-100) pg/mL Total Protein (6.4-8.2) g/dL Albumin (3.4-5.0) g/dL Lipase (73-393) U/L Urine Color Patricia (Yellw/Straw) Urine Clarity Cloudy H (Clear) Urine pH 5.0 (5.0-8.5) Ur Specific [place] 1.025 (1.002-1.035) Urine Protein 100 H (Neg-Trace) mg/dL Urine Glucose (UA) Negative (Negative) mg/dL Urine Ketones Negative (Negative) mg/dL Urine Occult Blood Small H (Negative) Urine Nitrate Negative (Negative) Urine Bilirubin Negative (Negative) Urine Urobilinogen 4 or greater (Less than 2) mg/dL Ur Leukocyte Esterase Negative (Negative) Urine RBC 5 H (0-3) /hpf Urine WBC 6 H (0-5) /hpf Ur Squamous Epith Cells 2 (0-5) /hpf Amorphous Sediment Few H (None) /hpf Urine Mucus Few H (Occasional) /lpf Micro UA Comment Cath-culture not ind Ur Microscopic Review Not Reportable Urine Culture Comments Cath-cult not ind 07/15/18 07/16/18 Range/Units 20:10 00:50 WBC (4.0-11.0) th/mm3 RBC (4.00-5.30) mil/mm3 Hgb (11.6-15.3) gm/dL Hct (35.0-46.0) % MCV (80.0-100.0) fL MCH (27.0-34.0) pg MCHC (32.0-36.0) % RDW (11.6-17.2) % Plt Count (150-450) th/mm3 MPV (7.0-11.0) fL Neut % (Auto) (16.0-70.0) % Lymph % (Auto) (9.0-44.0) % [place] % (Auto) (0.0-8.0) % Eos % (Auto) (0.0-4.0) % Baso % (Auto) (0.0-2.0) % Neut # (Auto) (1.8-7.7) th/mm3 Lymph # (Auto) (1.0-4.8) th/mm3 [place] # (Auto) (0.0-0.9) th/mm3 Eos # (Auto) (0.0-0.4) th/mm3 Baso # (Auto) (0.0-0.2) th/mm3 WBC Differential Differential Comment PT (9.8-11.6) sec INR Ratio APTT (24.3-30.1) sec Sodium (136-145) meq/L Potassium (3.5-5.1) meq/L Chloride (98-107) meq/L Carbon Dioxide (21.0-32.0) meq/L Anion Gap (5-15) meq/L BUN (7-18) mg/dL Creatinine (0.50-1.00) mg/dL Estimated GFR (>89) mL/min Random Glucose (74-106) mg/dL Lactic Acid 1.9 (0.4-2.0) mmol/L Calcium (8.5-10.1) mg/dL Magnesium (1.5-2.5) mg/dL Total Bilirubin (0.2-1.0) mg/dL AST (15-37) U/L ALT (10-53) U/L Alkaline Phosphatase (45-117) U/L Total Creatine Kinase (26-192) U/L CK-MB (CK-2) (0.5-3.6) ng/mL CK-MB (CK-2) % (0.0-4.0) % Troponin I Less than 0.02 L (0.02-0.05) ng/mL B-Natriuretic Peptide (0-100) pg/mL Total Protein (6.4-8.2) g/dL Albumin (3.4-5.0) g/dL Lipase (73-393) U/L Urine Color (Yellw/Straw) Urine Clarity (Clear) Urine pH (5.0-8.5) Ur Specific [place] (1.002-1.035) Urine Protein (Neg-Trace) mg/dL Urine Glucose (UA) (Negative) mg/dL Urine Ketones (Negative) mg/dL Urine Occult Blood (Negative) Urine Nitrate (Negative) Urine Bilirubin (Negative) Urine Urobilinogen (Less than 2) mg/dL Ur Leukocyte Esterase (Negative) Urine RBC (0-3) /hpf Urine WBC (0-5) /hpf Ur Squamous Epith Cells (0-5) /hpf Amorphous Sediment (None) /hpf Urine Mucus (Occasional) /lpf Micro UA Comment Ur Microscopic Review Urine Culture Comments Imaging Data Radiologist's impression: Chest X-Ray 07/15/18 17:02 CONCLUSION: Negative examination. Abdomen/Pelvis CT 07/15/18 18:54 CONCLUSION: 1. Small bilateral pleural effusions and small pericardial effusion. 2. Moderate constipation, especially rectal. 3. Multiple calcified gallstones. 4. No renal calculi or evidence for obstructive uropathy. Small left renal cyst. Probable 2.8 cm left adrenal adenoma. Chest CTA 07/15/18 18:54 CONCLUSION: 1. Negative for pulmonary embolus. Small lateral pleural effusions and pericardial effusion measuring around 12 mm in thickness posteriorly. Dependent atelectasis. Discharge Plan Discharge Disposition Patient Disposition: 30 Still Patient Discharge Condition Condition: Stable Discharge Details Diagnosis: Chest pain, Pericardial effusion Physicians Team ED Provider: Evon Choi Primary Care Provider: Courtney Gonzalez Attending Provider: Hector Adams Other Providers: Reanna Martin Status ED Status: Left Department Discharge Information Discharge Date/Time: 07/15/18 22:51
[2018-07-15 17:39] LABS: Activated Partial Thrombo Time 33.5 sec (24.3-30.1); Prothrombin Time 10.5 sec (9.8-11.6)
[2018-07-15] MEDS ORDERED: Sodium Chlor 0.9% Inj 500 ML IV.SIG SCH ×3 (18:00→20:00)
[2018-07-15 18:03] LABS: Alanine Aminotransferase 19 U/L (10-53); Albumin 2.3 g/dL (3.4-5.0); Alkaline Phosphatase 68 U/L (45-117); Anion Gap 9 meq/L (5-15); Aspartate Aminotransferase 23 U/L (15-37); Blood Urea Nitrogen 26 mg/dL (7-18); Calcium 8.4 mg/dL (8.5-10.1); Carbon Dioxide 23.7 meq/L (21.0-32.0); Chloride 106 meq/L (98-107); Creatine Kinase 215 U/L (26-192); Glomerular Filtration Rate 59 mL/min (>89); Glucose,Random 89 mg/dL (74-106); Lipase 132 U/L (73-393); Potassium 4.5 meq/L (3.5-5.1); Sodium 139 meq/L (136-145)
[2018-07-15 18:16] LABS: CKMB Percent 0.5 % (0.0-4.0); Creatine Kinase MB 1.1 ng/mL (0.5-3.6)
[2018-07-15 18:46] LABS: Amorphous Sediment,Urine Few /hpf; Bilirubin,Urine Negative (Negative); Clarity,Urine Cloudy (Clear); Color,Urine Amber (Yellw/Straw); Glucose,Urine (UA) Negative (Negative); Leukocyte Esterase,Urine Negative (Negative); Mucus,Urine Few /lpf (Occasional); Nitrite,Urine Negative (Negative); Specific Gravity,Urine 1.025 (1.002-1.035); Squamous Epithelial Cell,Urine 2 /hpf (0-5); Urobilinogen,Urine 4 or Greater mg/dL (Less than 2)
--- NOTE | 2018-07-15 19:52 | CT ---
EXAM DATE: 07/15/2018 7:40 PM EDT AGE/SEX: 63 years / Female INDICATIONS: Bilateral flank pain today. CLINICAL DATA: This is the patient's initial encounter. Patient reports that signs and symptoms have been present for 1 day and indicates a pain score of 7/10. MEDICAL/SURGICAL HISTORY: Diabetes. Congestive heart failure. Lupus. None. RADIATION DOSE: 26.86 CTDI (mGy) ; Patient body habitus COMPARISON: No prior exams available for comparison. TECHNIQUE: Multiple contiguous axial images were obtained through the abdomen. Images were obtained using multiple row detector helical technique. Using automated exposure control and adjustment of the mA and/or kV according to patient size, radiation dose was kept as low as reasonably achievable to o btain optimal diagnostic quality images. DICOM format image data is available electronically for rev iew and comparison. FINDINGS: There are small bilateral pleural effusions and small pericardial effusion. No acute findings in the liver, spleen, kidneys or pancreas. There is a 2.8 cm left adrenal mass, lik cheryl an adenoma. Right adrenal unremarkable. Numerous calcified gallstones without biliary ductal dila tation. There is mild constipation in the abdomen. Moderate rectosigmoid constipation. No other pelvic mass o r adenopathy. No acute bony abnormality. CONCLUSION: 1. Small bilateral pleural effusions and small pericardial effusion. 2. Moderate constipation, especially rectal. 3. Multiple calcified gallstones. 4. No renal calculi or evidence for obstructive uropathy. Small left renal cyst. Probable 2.8 cm lef t adrenal adenoma. Electronically signed by: Demario Roach MD 07/15/2018 7:50 PM EDT
--- NOTE | 2018-07-15 19:57 | CT ---
EXAM DATE: 07/15/2018 7:48 PM EDT AGE/SEX: 63 years / Female INDICATIONS: Chest pain and shortness of breath. CLINICAL DATA: This is the patient's initial encounter. Patient reports that signs and symptoms have been present for 1 day and indicates a pain score of 7/10. MEDICAL/SURGICAL HISTORY: Diabetes. Lupus. Hypertension. None. RADIATION DOSE: 23.16 CTDI (mGy) ; Patient body habitus COMPARISON: No prior exams available for comparison. TECHNIQUE: Volumetric scanning was performed using a multi-row detector CT scanner during bolus infu vincent of 80 ml Omnipaque 350 (iohexol) nonionic water-soluble contrast as a single exam dose. The brandan a was post processed with a variety of visualization algorithms including full volume maximum intensi ty projection and sliding thin slab reformation. Using automated exposure control and adjustment of the mA and/or kV according to patient size, radiation dose was kept as low as reasonably achievable t o obtain optimal diagnostic quality images. DICOM format image data is available electronically for review and comparison. FINDINGS: No filling defects identified in the pulmonary arteries to suggest pulmonary embolic disease. There are small pleural effusions and small pericardial effusion. Dependent atelectasis in the lungs. No pneumothorax. Upper abdomen reveals multiple calcified gallstones. Liver is enlarged. CONCLUSION: 1. Negative for pulmonary embolus. Small lateral pleural effusions and pericardial effusion measurin g around 12 mm in thickness posteriorly. Dependent atelectasis. Electronically signed by: Demario Roach MD 07/15/2018 7:55 PM EDT
[2018-07-15] MEDS ORDERED: Bisacodyl 10 MG Supp RECTAL PRN (21:53)
[2018-07-15] MEDS ORDERED: Vancomycin Consult Pharmacy OTHER PRN (21:59)
[2018-07-15] MEDS: Piperacil/Tazo 3.375 GM Premix 50 ML IV.SIG SCH (23:29)
[2018-07-16] MEDS ORDERED: Vancomycin Inj 1,000 MG in Sodium Chlor 0.9% Inj 250 ML IV.SIG ONE ×2
--- NOTE | 2018-07-16 03:16 | P.HPIM ---
History of Present Illness Service: [facility] Primary Care Physician: Courtney Gonzalez MD Chief Complaint: Chest pain History of Present Illness: 63 y/o female with a history of chf, DM, lupus and RA presented to the ED with complaints of chest pain and fevers for 3 days. She is from [facility] and is a poor historian regarding medical history and medications. She is very somnolent but states she has had chest pain for 3 days, intermittent, under left breast, worse with taking a deep breath. She denies any nausea, vomiting, headaches or dysuria. No family is at bedside at time of examination. Records that were sent from [facility] was reviewed. Review of Systems All other systems reviewed negative except as stated in [facility] - History History Provided By: Patient - Medical / Surgical Hx Neg / Unobtainable Surgical History: Unable to Obtain - Medical History Medical History: Medical History (Last Updated 07/16/18 @ 03:40 by ARBEN Martinez) Surgical history unknown CHF (congestive heart failure) Diabetes Lupus Rheumatoid arthritis - Surgical History Surgical History: Surgical History (Last Updated 07/16/18 @ 03:40 by ARBEN Martinez) Surgical history unknown - Family History Family History: Family History (Last Reviewed 07/16/18 @ 03:39 by ARBEN Martinez) Other Diabetes - Social History I have reviewed the patient's Social History: Yes - Tobacco History Second Hand Smoke Exposure: No Smoking Status: Never smoker - Alcohol History How Often Do You Have a Drink Containing Alcohol: Never - Substance Use History Substance History: No History of Abuse - Travel History Recent Travel in the [facility] Within the Last 8 Weeks: No Recent Travel Out of the Country Within the Last 8 Weeks: No - Immunization History Tetanus Immunization: Unsure Medications and Allergies Active Medications: Active Medications Al Hydroxide/Mg Hydroxide (Milk Of Magndoretha Liq) 30 ml PO Q12H PRN PRN Reason: Mild Constipation Bisacodyl (Dulcolax Supp) 10 mg RECTAL DAILY PRN PRN Reason: SEVERE CONSITIPATION Sodium Chloride (Ns Inj) 500 mls @ 0 mls/hr IV.SIG BOLUS JORGE Last Infusion: 07/15/18 18:13 Dose: Infused Sodium Chloride (Ns Inj) 500 mls @ 0 mls/hr IV.SIG BOLUS JORGE Last Infusion: 07/15/18 18:58 Dose: Infused Sodium Chloride (Ns Inj) 500 mls @ 0 mls/hr IV.SIG BOLUS JORGE Last Infusion: 07/15/18 20:45 Dose: Infused Piperacillin/Tazobactam/Dextrose (Zosyn 3.375 Gm Premix) 50 mls @ 100 mls/hr IV.SIG Q6H JORGE Last Infusion: 07/15/18 23:59 Dose: Infused Lactulose (Lactulose Liq) 30 ml PO DAILY PRN PRN Reason: SEVERE CONSITIPATION Pharmacy Profile Note (Vancomycin Consult Pharmacy) 1 each OTHER UNSCH PRN PRN Reason: Pharmacy to dose Sennosides (Senokot) 17.2 mg PO Q12H PRN PRN Reason: Moderate Constipation Allergies Allergy/AdvReac Type Severity Reaction Status Date / Time No Known Allergies Allergy Verified 07/15/18 16:58 Home Medications Medication Instructions Recorded Confirmed Type glyburide 2.5 mg PO BID 07/15/18 07/15/18 History metformin [Glucophage] 1,000 mg PO DAILY 07/15/18 07/15/18 History Exam Vital signs: Vital Signs 07/15/18 16:49 07/15/18 16:56 07/15/18 17:02 Temperature 99.2 F Pulse Rate 145 H 148 H Respiratory Rate 24 20 Blood Pressure 123/81 Pulse Oximetry 100 100 100 07/15/18 17:56 07/15/18 19:00 07/15/18 22:51 Temperature Pulse Rate 131 H 128 H 110 H Respiratory Rate 20 18 18 Blood Pressure 123/81 Pulse Oximetry 100 99 98 07/15/18 22:59 Temperature 98.6 F Pulse Rate 107 H Respiratory Rate 17 Blood Pressure 131/67 Pulse Oximetry 96 Intake & Output 07/15/18 07/15/18 07/16/18 06:59 18:59 06:59 Intake Total 1100 / 1100 1050 / 1050 Balance 1100 / 1100 1050 / 1050 Weight 136.078 kg Intake: IV 1100 / 1100 1050 / 1050 Zosyn 3.375 GM Premix 50 ML @ 50 / 50 100 mls/hr IV.SIG Q6H JORGE Rx#: [id number] Zosyn 4.5 GM Premix 4.5 gm In 100 / 100 100 ml @ 200 mls/hr IV.SIG STAT STA Rx#:[id number] NS Inj 500 ML @ Wide Open IV. 1000 / 1000 500 / 500 SIG BOLUS JORGE Rx#:[id number] Vancomycin Inj 1,000 MG In NS 500 / 500 Inj 250 ML @ 250 mls/hr IV.SIG ONCE ONE Rx#:[id number] Narrative: GENERAL: This is a well-nourished, well-developed patient, in no apparent distress. CARDIOVASCULAR: Tachycardic rate and rhythm without murmurs, gallops, or rubs. RESPIRATORY: Diminished Breath sounds equal bilaterally. No wheezes, rales, or rhonchi. GASTROINTESTINAL: Abdomen soft, non-tender, nondistended. Normal active bowel sounds MUSCULOSKELETAL: Extremities without clubbing, cyanosis. +1 pitting edema in bilateral lower extremities NEURO: Alert & Oriented x2-3 to person, place. Poor historian. Moves all ext x4 Results - Labs CBC & Chem 7: 07/15/18 17:06 07/15/18 17:06 Labs: Short CBC 07/15/18 Range/Units 17:06 WBC 18.9 H (4.0-11.0) th/mm3 Hgb 11.7 (11.6-15.3) gm/dL Hct 35.3 (35.0-46.0) % Plt Count 361 (150-450) th/mm3 BMP 07/15/18 17:06 Sodium 139 Potassium 4.5 Chloride 106 Carbon Dioxide 23.7 BUN 26 H Creatinine 1.14 H Calcium 8.4 L Cardiac Enzymes 07/15/18 07/16/18 Range/Units 17:06 00:50 Total Creatine Kinase 215 H (26-192) U/L CK-MB (CK-2) 1.1 (0.5-3.6) ng/mL Troponin I Less than 0.02 L Less than 0.02 L (0.02-0.05) ng/mL Liver Function 07/15/18 Range/Units 17:06 Total Bilirubin 0.7 (0.2-1.0) mg/dL AST 23 (15-37) U/L ALT 19 (10-53) U/L Alkaline Phosphatase 68 (45-117) U/L Albumin 2.3 L (3.4-5.0) g/dL Urine 07/15/18 Range/Units 17:29 Urine Color Patricia (Yellw/Straw) Urine Clarity Cloudy H (Clear) Urine pH 5.0 (5.0-8.5) Ur Specific [place] 1.025 (1.002-1.035) Urine Protein 100 H (Neg-Trace) mg/dL Urine Glucose (UA) Negative (Negative) mg/dL - Imaging Impressions Chest X-Ray 07/15/18 17:02 CONCLUSION: Negative examination. Abdomen/Pelvis CT 07/15/18 18:54 CONCLUSION: 1. Small bilateral pleural effusions and small pericardial effusion. 2. Moderate constipation, especially rectal. 3. Multiple calcified gallstones. 4. No renal calculi or evidence for obstructive uropathy. Small left renal cyst. Probable 2.8 cm left adrenal adenoma. Chest CTA 07/15/18 18:54 CONCLUSION: 1. Negative for pulmonary embolus. Small lateral pleural effusions and pericardial effusion measuring around 12 mm in thickness posteriorly. Dependent atelectasis. Caprini VTE Risk Assessment Caprini VTE Risk Assessment: Moderate/High Risk (score >= 2) Caprini Risk Assessment Model: Point Value = 1 Point Value = 2 Point Value = 3 Point Value = 5 Age 41-60 Minor surgery BMI > 25 kg/m2 Swollen legs Varicose veins or History of unexplained or recurrent spontaneous Oral contraceptives or hormone replacement Sepsis (< 1 month) Serious lung disease, including pneumonia (< 1 month) Abnormal pulmonary function Acute myocardial infarction Congestive heart failure (< 1 month) History of inflammatory bowel disease Medical patient at bed rest Age 61-74 Arthroscopic surgery Major open surgery (> 45 min) Laparoscopic surgery (> 45 min) Malignancy Confined to bed (> 72 hours) Immobilizing plaster cast Central venous access Age >= 75 History of VTE Family history of VTE Factor V Leiden Prothrombin [id number] Lupus anticoagulant Anticardiolipin antibodies Elevated serum homocysteine Heparin-induced thrombocytopenia Other congenital or acquired thrombophilia Stroke (< 1 month) Elective arthroplasty Hip, pelvis, or leg fracture Acute spinal cord injury (< 1 month) Prophylaxis Regimen: Total Risk Factor Score Risk Level Prophylaxis Regimen 0-1 Low Early ambulation 2 Moderate Order ONE of the following: *Sequential Compression Device (SCD) *Heparin 5000 units SQ BID 3-4 Higher Order ONE of the following medications: *Heparin 5000 units SQ TID *Enoxaparin/Lovenox 40 mg SQ daily (WT < 150 kg, CrCl > 30 mL/min) *Enoxaparin/Lovenox 30 mg SQ daily (WT < 150 kg, CrCl > 10-29 mL/min) *Enoxaparin/Lovenox 30 mg SQ BID (WT < 150 kg, CrCl > 30 mL/min) AND/OR *Sequential Compression Device (SCD) 5 or more Highest Order ONE of the following medications: *Heparin 5000 units SQ TID (Preferred with Epidurals) *Enoxaparin/Lovenox 40 mg SQ daily (WT < 150 kg, CrCl > 30 mL/min) *Enoxaparin/Lovenox 30 mg SQ daily (WT < 150 kg, CrCl > 10-29 mL/min) *Enoxaparin/Lovenox 30 mg SQ BID (WT < 150 kg, CrCl > 30 mL/min) AND *Sequential Compression Device (SCD) Assessment and Plan - Plan 63 y/o female with a history of chf, DM, lupus and RA presented to the ED with complaints of chest pain and fevers for 3 days. Chest pain, atypical, r/o ACS CTA reviewed and shows a Small lateral pleural effusions and pericardial effusion measuring around 12 mm in thickness posteriorly, negative for PE troponin .02, EKG reviewed and shows sinus tachycardia, no st elevation -Serial troponin and ekg -Consult cardiology for evaluation of pericardial effusion -Lexiscan ordered -NPO SIRS, wbc 18.9, HR 131, unknown source -IV antibiotics vancomycin and Zosyn -Flu negative, blood cultures pending -Trend cbc DM, chronic, last a1c 8.6 -Accu checks with SSI -hold home medications for now CHF, chronic, last EF in 2009 shows 25% -2 d echo ordered -Lasix x 1 given due to sob DVT prophylaxis: SCDs Discussed Condition With: patient and rn
[2018-07-16] MEDS: Piperacil/Tazo 3.375 GM Premix 50 ML IV.SIG SCH ×3 (06:31→17:30)
[2018-07-16] MEDS: Dextrose 50% in Water 50 ML Vial IV.PUSH PRN ×4 (07:50→16:27)
[2018-07-16] MEDS: Insulin NovoLOG Aspart Correctional Sugar Inj SQ SCH ×4 (08:50→20:55)
[2018-07-16] MEDS ORDERED: Regadenoson Inj 0.4 MG/5 ML Syringe IV.PUSH ONE (10:00)
[2018-07-16] MEDS ORDERED: Morphine Sulfate Inj 2 MG/ML Vial IV.PUSH PRN (10:56)
[2018-07-16] MEDS: Vancomycin Inj 2,500 MG in Sodium Chlor 0.9% Inj 500 ML IV.SIG SCH (14:13)
[2018-07-16 15:23] LABS: Baso % (Auto) 0.2 % (0.0-2.0); Eos # (Auto) 0.1 th/mm3 (0.0-0.4); Eos % (Auto) 0.6 % (0.0-4.0); Hematocrit 35.7 % (35.0-46.0); Hemoglobin 11.6 gm/dL (11.6-15.3); Lymph # (Auto) 1.4 th/mm3 (1.0-4.8); Lymph % (Auto) 7.4 % (9.0-44.0); Mean Corpuscular HGB Conc 32.4 % (32.0-36.0); Mean Corpuscular Hemoglobin 26.7 pg (27.0-34.0); Mean Corpuscular Volume 82.5 fL (80.0-100.0); Mean Platelet Volume 8.9 fL (7.0-11.0); Mono # (Auto) 1.7 th/mm3 (0.0-0.9); Mono % (Auto) 8.7 % (0.0-8.0); Neut # (Auto) 16.1 th/mm3 (1.8-7.7); Neut % (Auto) 83.1 % (16.0-70.0); Platelet Count 357 th/mm3 (150-450); Red Blood Count 4.33 mil/mm3 (4.00-5.30); Red Cell Distribution Width 15.3 % (11.6-17.2)
[2018-07-16 15:24] LABS: White Blood Count 19.3 th/mm3 (4.0-11.0)
[2018-07-16 15:39] LABS: Alkaline Phosphatase 69 U/L (45-117)
[2018-07-16 15:41] LABS: Alanine Aminotransferase 16 U/L (10-53); Anion Gap 10 meq/L (5-15); Aspartate Aminotransferase 18 U/L (15-37); Blood Urea Nitrogen 21 mg/dL (7-18); Calcium 8.4 mg/dL (8.5-10.1); Carbon Dioxide 23.4 meq/L (21.0-32.0); Chloride 106 meq/L (98-107); Glomerular Filtration Rate 62 mL/min (>89); Glucose,Random 79 mg/dL (74-106); Potassium 4.1 meq/L (3.5-5.1); Sodium 139 meq/L (136-145)
--- NOTE | 2018-07-16 16:18 | ECG ---
Date Performed: 07/16/2018 Time Performed: 04:16:13 PTAGE: 63 years EKG: SINUS TACHYCARDIA WITH SHORT MN INTERVAL POSSIBLE RIGHT VENTRICULAR CONDUCTION DELAY ACUTE PERICARDITIS - EXCLUDE ACUTE PA Possible anteroseptal acute PA PREVIOUS TRACING : 07/15/2018 23.04 DOCTOR: Chet Rowe Interpretating Date/Time 07/16/2018 16:18:19
--- NOTE | 2018-07-16 16:18 | ECG ---
Date Performed: 07/15/2018 Time Performed: 23:04:00 PTAGE: 63 years EKG: SINUS TACHYCARDIA WITH SHORT MD INTERVAL LOW QRS VOLTAGE IN PRECORDIAL LEADS POSSIBLE RIGHT VENTRICULAR CONDUCTION DELAY POSSIBLE ANTERIOR MYOCARDIAL INFARCTION INFERIOR MYOCARDIAL INFARCTION ABNORMAL ECG PREVIOUS TRACING : 07/15/2018 16.54 Since the previous tracing, no significant change noted DOCTOR: Chet Rowe Interpretating Date/Time 07/16/2018 16:17:48
--- NOTE | 2018-07-16 16:18 | ECG ---
Date Performed: 07/15/2018 Time Performed: 16:54:56 PTAGE: 63 years EKG: SINUS TACHYCARDIA, POSSIBLE ATRIAL FLUTTER POSSIBLE ANTERIOR MYOCARDIAL INFARCTION ST ELEVA TION, CONSIDER ANTERIOR AND INFERIOR INJURY ACUTE KS Consider Pericarditis PREVIOUS TRACING :06/24/2018 18.12 DOCTOR: Chet Rowe Interpretating Date/Time 07/16/2018 16:17:39
[2018-07-16] MEDS: Ibuprofen 600 MG Tablet PO SCH (18:16)
--- NOTE | 2018-07-16 18:54 | ECHRPT ---
Indication: HEART FAILURE CONCLUSIONS The left ventricular systolic function is low normal with an estimated ejection fraction in the rang e of 50- 55%. Mild concentric left ventricular hypertrophy. Left ventricular diastolic function parameters are normal. Trace mitral valve regurgitation. There is trace tricuspid valve regurgitation. There is a small pericardial effusion present. No hemodynamically significant echocardiographic features were observed (no pre-tamponade physiology). BP: / HR: Rhythm: Technical Quality: FINDINGS LEFT VENTRICLE Normal left ventricular size. Mild concentric left ventricular hypertrophy. The left ventricular systolic function is low normal with an estimated ejection fraction in the rang e of 50- 55%. Left ventricular diastolic function parameters are normal. RIGHT VENTRICLE Normal right ventricular size and systolic function. LEFT ATRIUM The left atrial size is normal. RIGHT ATRIUM The right atrial size is normal. ATRIAL SEPTUM Normal atrial septal thickness without atrial level shunting by limited color doppler interrogation. AORTA The aortic root and proximal ascending aorta are normal in size on limited imaging. MITRAL VALVE Mitral annular calcification is present. Trace mitral valve regurgitation. No mitral valve stenosis. AORTIC VALVE Trileaflet aortic valve. Aortic valve sclerosis is present. No aortic valve regurgitation. No aortic valve stenosis. TRICUSPID VALVE Structurally normal tricuspid valve. There is trace tricuspid valve regurgitation. No tricuspid valve stenosis. PULMONARY VALVE The pulmonary valve is not well visualized. VESSELS The inferior vena cava is normal in size. PERICARDIUM There is a small pericardial effusion present. No hemodynamically significant echocardiographic features were observed (no pre-tamponade physiology). Leonardo Renteria DO (Electronically Signed) Final Date:16 July 2018 18:53
--- NOTE | 2018-07-17 00:21 | MB ---
cc: Leonardo Renteria DO DATE: 07/16/2018 REASON FOR CONSULTATION: Chest pain. HISTORY OF PRESENT ILLNESS: Foster Ma is a pleasant 63-year-old female who presented to [facility] due to chest pain and fevers for 3 days. She has had chest pain on and off for the past 3 days, which is underneath her left breast and worse with taking a deep breath. It does get somewhat better upon sitting up. She denies any shortness of breath, nausea or vomiting. She has been given nitroglycerin multiple times throughout the day without helping her chest pain. PAST MEDICAL HISTORY: 1. History of congestive heart failure with an ejection fraction of 25% (last known ejection fraction was from 2009 and at that time was offered cardiac catheterization, but refused). 2. Diabetes mellitus. 3. Lupus. 4. Rheumatoid arthritis. PAST SURGICAL HISTORY: Unknown. ALLERGIES: NO KNOWN DRUG ALLERGIES. MEDICATIONS: 1. NovoLog sliding scale. 2. Gabapentin 100 mg t.i.d. 3. Metformin 500 mg b.i.d. 4. Nifedipine 30 mg daily. 5. Glyburide 2.5 mg b.i.d. 6. Metformin 1000 mg daily. FAMILY HISTORY: Denies sudden cardiac within the family. SOCIAL HISTORY: Denies tobacco, alcohol or drug abuse. REVIEW OF SYSTEMS: Fourteen systems were reviewed including osteopathic. Pertinent positives and negatives above, otherwise negative. PHYSICAL EXAMINATION: VITAL SIGNS: Temperature 98.7, heart rate 120, blood pressure 121/68, respirations 20, pulse oximetry 99% on 2 liters. GENERAL: The patient appears in mild distress due to chest pain. Alert and awake. HEENT: Extraocular muscles intact. Mucous membranes moist. NECK: Supple. No JVD at 45 degrees. No carotid bruits heard bilaterally. Carotid upstroke is brisk in nature. HEART: Tachycardic, but regular rhythm. Positive first and second heart sounds with no noted murmurs, gallops or rubs. LUNGS: Clear to auscultation bilaterally. No wheezes, rales or rhonchi. ABDOMEN: Soft, nontender, nondistended. No organomegaly noted. EXTREMITIES: Show trace edema bilaterally. NEUROLOGIC: No focal deficits. SKIN: Warm, dry and intact. OSTEOPATHIC: No kyphoscoliosis, lordosis or paraspinal tender points. LABORATORY DATA: Hemoglobin 11.6, hematocrit 35.7, platelets 357. Potassium 4.1, BUN 21, creatinine 1.09. Troponin negative x3. Electrocardiogram (07/16/2018 at 0416 hours): Sinus tachycardia, multiple leads with ST elevation as well as MO depression, consistent with acute pericarditis. ASSESSMENT: 1. Chest pain, most likely due to acute pericarditis. 2. Pericardial effusion noted on CT exam. 3. Recent fevers. 4. History of cardiomyopathy of unknown type. 5. History of lupus. 6. History of rheumatoid arthritis. RECOMMENDATIONS: 1. Ms. Ma presented with chest pain that is consistent with pericarditis, which is confirmed with her EKG. 2. We will stop giving her nitroglycerin as this will not help in this situation. 3. We will put her on ibuprofen 600 mg t.i.d. around the clock. We will have to watch her creatinine and she may need fluids during this to help from getting acute kidney injury. 4. She will need to go home on a taper of NSAIDs. I would not decrease the dose until her chest pain is gone. 5. We will add a CRP to her morning labs to help with further recommendations of dose taper. 6. We will check a 2-D echo to look at her overall left ventricular function, cardiac structure, possible valvulopathies and her pericardial effusion. 7. Further recommendations will be made based on her hospital course. Thank you for allowing me to see Foster Ma. If there are any questions, please do not hesitate to call. DO SINCERE Mcdonough/paramjit , 11:19 PM , 11:31 PM
[2018-07-17] MEDS: Piperacil/Tazo 3.375 GM Premix 50 ML IV.SIG SCH ×2 (01:10→05:36)
[2018-07-17] MEDS: Ibuprofen 600 MG Tablet PO SCH ×3 (01:50→17:23)
--- NOTE | 2018-07-17 08:45 | P.PNFP ---
Subjective Interval history: Resting in bed, still complains of chest discomfort describes as a cramping Denies SOB, on room air Results - Labs Result diagrams: 07/16/18 15:11 07/17/18 06:08 Abnormal lab results 07/16/18 07/16/18 07/16/18 Range/Units 08:49 12:36 15:11 WBC 19.3 H (4.0-11.0) th/mm3 MCH 26.7 L (27.0-34.0) pg Neut % (Auto) 83.1 H (16.0-70.0) % Lymph % (Auto) 7.4 L (9.0-44.0) % [place] % (Auto) 8.7 H (0.0-8.0) % Neut # (Auto) 16.1 H (1.8-7.7) th/mm3 [place] # (Auto) 1.7 H (0.0-0.9) th/mm3 BUN (7-18) mg/dL Creatinine (0.50-1.00) mg/dL Estimated GFR (>89) mL/min POC Glucose 142 H 67 L (68-110) mg/dl Calcium (8.5-10.1) mg/dL Troponin I (0.02-0.05) ng/mL C-Reactive Protein (0.00-0.30) mg/dL Albumin (3.4-5.0) g/dL 07/16/18 07/16/18 07/16/18 Range/Units 15:11 16:18 16:48 WBC (4.0-11.0) th/mm3 MCH (27.0-34.0) pg Neut % (Auto) (16.0-70.0) % Lymph % (Auto) (9.0-44.0) % [place] % (Auto) (0.0-8.0) % Neut # (Auto) (1.8-7.7) th/mm3 [place] # (Auto) (0.0-0.9) th/mm3 BUN 21 H (7-18) mg/dL Creatinine 1.09 H (0.50-1.00) mg/dL Estimated GFR 62 L (>89) mL/min POC Glucose 62 L 147 H (68-110) mg/dl Calcium 8.4 L (8.5-10.1) mg/dL Troponin I Less than 0.02 L (0.02-0.05) ng/mL C-Reactive Protein (0.00-0.30) mg/dL Albumin 2.0 L (3.4-5.0) g/dL 07/16/18 07/17/18 07/17/18 Range/Units 20:50 05:44 06:08 WBC (4.0-11.0) th/mm3 MCH (27.0-34.0) pg Neut % (Auto) (16.0-70.0) % Lymph % (Auto) (9.0-44.0) % [place] % (Auto) (0.0-8.0) % Neut # (Auto) (1.8-7.7) th/mm3 [place] # (Auto) (0.0-0.9) th/mm3 BUN (7-18) mg/dL Creatinine 1.13 H (0.50-1.00) mg/dL Estimated GFR 59 L (>89) mL/min POC Glucose 150 H 180 H (68-110) mg/dl Calcium (8.5-10.1) mg/dL Troponin I (0.02-0.05) ng/mL C-Reactive Protein 26.00 H (0.00-0.30) mg/dL Albumin (3.4-5.0) g/dL 07/17/18 Range/Units 08:13 WBC (4.0-11.0) th/mm3 MCH (27.0-34.0) pg Neut % (Auto) (16.0-70.0) % Lymph % (Auto) (9.0-44.0) % [place] % (Auto) (0.0-8.0) % Neut # (Auto) (1.8-7.7) th/mm3 [place] # (Auto) (0.0-0.9) th/mm3 BUN (7-18) mg/dL Creatinine (0.50-1.00) mg/dL Estimated GFR (>89) mL/min POC Glucose 169 H (68-110) mg/dl Calcium (8.5-10.1) mg/dL Troponin I (0.02-0.05) ng/mL C-Reactive Protein (0.00-0.30) mg/dL Albumin (3.4-5.0) g/dL Short CBC 07/16/18 Range/Units 15:11 WBC 19.3 H (4.0-11.0) th/mm3 Hgb 11.6 (11.6-15.3) gm/dL Hct 35.7 (35.0-46.0) % Plt Count 357 (150-450) th/mm3 BMP 07/16/18 07/17/18 15:11 06:08 Sodium 139 Potassium 4.1 Chloride 106 Carbon Dioxide 23.4 BUN 21 H Creatinine 1.09 H 1.13 H Calcium 8.4 L Cardiac Enzymes 07/16/18 Range/Units 15:11 Troponin I Less than 0.02 L (0.02-0.05) ng/mL Liver Function 07/16/18 Range/Units 15:11 Total Bilirubin 1.0 (0.2-1.0) mg/dL AST 18 (15-37) U/L ALT 16 (10-53) U/L Alkaline Phosphatase 69 (45-117) U/L Albumin 2.0 L (3.4-5.0) g/dL Physical Exam Vital signs: Vital Signs 07/16/18 11:42 07/16/18 16:12 07/16/18 20:00 Temperature 97.8 F 98.7 F 98.4 F Pulse Rate 133 H 130 H 126 H Respiratory Rate 22 20 21 Blood Pressure 134/73 180/79 H 121/68 Pulse Oximetry 98 96 99 07/17/18 00:00 07/17/18 04:00 Temperature 97.9 F 97.7 F Pulse Rate 121 H 65 Respiratory Rate 19 20 Blood Pressure 133/64 121/63 Pulse Oximetry 95 97 Intake & Output 07/16/18 07/17/18 07/17/18 18:59 06:59 18:59 Intake Total 675 / 675 100 / 100 Balance 675 / 675 100 / 100 Intake: IV 675 / 675 100 / 100 Zosyn 3.375 GM Premix 50 ML @ 150 / 150 100 / 100 100 mls/hr IV.SIG Q6H JORGE Rx#: [id number] Vancomycin Inj 2,500 MG In NS 525 / 525 Inj 500 ML @ 250 mls/hr IV.SIG Q24H JORGE Rx#:[id number] Other: # Bowel Movements 1 - Constitutional no acute distress - Routine HEENT Exam Head: Present: normocephalic ENT: Present: mucous membranes moist - Routine Neck Exam Present: supple - Routine Respiratory Exam Present: CTA bilaterally - Routine Cardiovascular Exam Present: S1, S2, murmur, rubs - Routine Abdominal Exam Present: soft, normoactive bowel sounds - Routine Extremities Exam Present: pulses intact - Routine Skin Exam Present: dry, warm - Routine Neurological Exam Present: alert, oriented X3 - Routine Psychiatric Exam Present: cooperative - Urinary Catheter Management Straight Cath placed during this visit: yes, but has since been removed by the nurse Reason for continuing: Not indwelling catheter Insertion date: 07/15/18 Insertion time: 15:30 Removal date: 07/15/18 Removal time: 17:32 Assessment and Plan - Assessment (1) Endocarditis Code(s): I38 - Endocarditis, valve unspecified Status: Acute Plan: Cardiology following, Ibuprofen started, Echo ordered, cont to follow rec's (2) Diabetes mellitus Code(s): E11.9 - Type 2 diabetes mellitus without complications Status: Acute Plan: Monitor Blood sugars, she does have a couple noted low BS, will hold oral meds for now (3) KASSIDY (acute kidney injury) Code(s): N17.9 - Acute kidney failure, unspecified Status: Resolved Plan: Monitor renal functions and trends (4) Pericardial effusion Code(s): I31.3 - Pericardial effusion (noninflammatory) Status: Acute Plan: Small pleural effusions noted, denies SOB Consult pulmonary if needed (2) Diabetes mellitus Qualifiers: Diabetes mellitus type: type 2 Diabetes mellitus mcc insulin use: without mcc use
[2018-07-17] MEDS: Insulin NovoLOG Aspart Correctional Sugar Inj SQ SCH ×4 (09:04→21:47)
--- NOTE | 2018-07-17 10:35 | P.CONID ---
History of Present Illness Service: Infectious disease Consult date: 07/17/18 Requesting Physician: Hector Adams Reason for Consult: Evaluate patient for possible endocarditis Primary Care Provider: Courtney Gonzalez MD Chief Complaint: Chest pain History of Present Illness: Patient seen and examined. Records reviewed. Patient is a 63-year-old female, brought into the hospital complaining of left- sided chest pain and some fevers for 3 days. She describes the pain to be under her left breast, and it seems to be somewhat constant and at times would get worse when she takes a deep breath. He does not get exacerbated by activity. She has a very mild cough. No nausea or vomiting. Denies any shortness of breath. Patient was recently hospitalized the first week of June and at that time she had generalized weakness. She had E. coli UTI, and she was discharged to the rehab facility. On this admission, patient was found to have a small pericardial effusion. Cardiology evaluated the patient and felt that she has pericarditis. Echocardiogram did not show any evidence of vegetation. Patient has not been febrile. Her white count is elevated. Her chest pain is about 50% better. She is on vancomycin and Zosyn. Blood cultures are negative. Urinalysis has mild pyuria, but she does not have any symptoms. CT of the chest did not show any pulmonary infiltrates. No pulmonary embolism. Infectious disease consultation has been requested to assist with evaluation and treatment and possible endocarditis. Review of Systems Constitutional: Reports fever(s), Denies chills, Denies lack of energy, Denies night sweats Eyes: Denies discharge, Denies dry eyes Ears, Nose, Mouth, and Throat: Denies difficulty swallowing, Denies dry mouth, Denies mouth pain, Denies nasal congestion, Denies nasal discharge, Denies pain with swallowing, Denies sore throat Cardiovascular: Reports chest pain, Reports chest pain at rest, Denies generalized swelling, Denies shortness of breath Respiratory: Reports cough, Denies chest congestion, Denies shortness of breath , Denies wheezing Gastrointestinal: Denies abdominal pain, Denies difficulty swallowing, Denies loose stools, Denies nausea, Denies pain with swallowing, Denies vomiting Genitourinary: Reports painful urination, Denies difficulty urinating Musculoskeletal: Reports joint pain, Reports joint swelling Skin/Breast: Denies rash, Denies sores, Denies wounds PMFSH - History History Provided By: Patient - Medical History Medical History: Medical History (Last Reviewed 07/17/18 @ 10:34 by Adenike Redman MD) CHF (congestive heart failure) Diabetes Lupus Rheumatoid arthritis - Surgical History Surgical History: Surgical History (Last Reviewed 07/17/18 @ 10:35 by Adenike Redman MD) Surgical history unknown - Family History Family History: Family History (Last Reviewed 07/17/18 @ 10:35 by Adenike Redman MD) Other Diabetes - Tobacco History Second Hand Smoke Exposure: No Smoking Status: Never smoker - Alcohol History How Often Do You Have a Drink Containing Alcohol: Never - Substance Use History Substance History: No History of Abuse - Travel History Recent Travel in the [place] Within the Last 8 Weeks: No Recent Travel Out of the Country Within the Last 8 Weeks: No - Immunization History Tetanus Immunization: Unsure Medications and Allergies Active Medications: Active Medications Al Hydroxide/Mg Hydroxide (Milk Of Magnesia Liq) 30 ml PO Q12H PRN PRN Reason: Mild Constipation Bisacodyl (Dulcolax Supp) 10 mg RECTAL DAILY PRN PRN Reason: SEVERE CONSITIPATION Dextrose (D50w Vial) 50 ml IV.PUSH UNSCH PRN PRN Reason: PER HYPOGLYCEMIA PROTOCOL Last Admin: 07/16/18 16:27 Dose: 50 ml Glucagon (Glucagon Inj) 1 mg OTHER PRN PRN PRN Reason: for Hypoglycemia Protocol Piperacillin/Tazobactam/Dextrose (Zosyn 3.375 Gm Premix) 50 mls @ 100 mls/hr IV.SIG Q6H [facility] Last Infusion: 07/17/18 06:12 Dose: Infused Vancomycin HCl 2,500 mg/ (Sodium Chloride) 525 mls @ 250 mls/hr IV.SIG Q24H [facility] Last Infusion: 07/16/18 16:41 Dose: Infused Ibuprofen (Motrin) 600 mg PO Q8H [facility] Last Admin: 07/17/18 01:50 Dose: 600 mg Insulin Aspart (Novolog Insulin Correctional Sugar Inj) 0 unit SQ ACHS [facility]; Protocol Last Admin: 07/17/18 09:04 Dose: Not Given Lactulose (Lactulose Liq) 30 ml PO DAILY PRN PRN Reason: SEVERE CONSITIPATION Morphine Sulfate (Morphine Inj) 2 mg IV.PUSH Q4H PRN PRN Reason: Acute Pain Nifedipine (Procardia Xl) [address] [facility] Last Admin: 07/17/18 08:13 Dose: 30 mg Pharmacy Profile Note (Vancomycin Consult Pharmacy) 1 each OTHER UNSCH PRN PRN Reason: Pharmacy to dose Sennosides (Senokot) 17.2 mg PO Q12H PRN PRN Reason: Moderate Constipation Allergies Allergy/AdvReac Type Severity Reaction Status Date / Time No Known Allergies Allergy Verified 07/15/18 16:58 Home Medications Medication Instructions Recorded Confirmed Type glyburide 2.5 mg PO BID 07/15/18 07/15/18 History metformin [Glucophage] 1,000 mg PO DAILY 07/15/18 07/15/18 History Exam Vital signs: Vital Signs 07/16/18 11:42 07/16/18 16:12 07/16/18 20:00 Temperature 97.8 F 98.7 F 98.4 F Pulse Rate 133 H 130 H 126 H Respiratory Rate 22 20 21 Blood Pressure 134/73 180/79 H 121/68 Pulse Oximetry 98 96 99 07/17/18 00:00 07/17/18 04:00 07/17/18 08:36 Temperature 97.9 F 97.7 F 98.7 F Pulse Rate 121 H 65 117 H Respiratory Rate 19 20 20 Blood Pressure 133/64 121/63 152/69 H Pulse Oximetry 95 97 98 Intake & Output 07/16/18 07/17/18 07/17/18 18:59 06:59 18:59 Intake Total 675 / 675 100 / 100 Balance 675 / 675 100 / 100 Intake: IV 675 / 675 100 / 100 Zosyn 3.375 GM Premix 50 ML @ 150 / 150 100 / 100 100 mls/hr IV.SIG Q6H [facility] Rx#: [id number] Vancomycin Inj 2,500 MG In NS 525 / 525 Inj 500 ML @ 250 mls/hr IV.SIG Q24H [facility] Rx#:[id number] Other: # Bowel Movements 1 Narrative: Physical Examination GENERAL: Patient is a well-nourished, well-developed female, awake and alert , not in respiratory distress. SKIN: Cool and dry. No generalized rash, no ecchymoses and no evidence of embolic lesions. HEAD: Atraumatic. Normocephalic. No temporal wasting, or tenderness. EYES: [place] conjunctiva. No petechia or hemorrhage. Pupils equal, round and reactive to light. Extraocular movements full and intact. No scleral icterus. No injection or drainage. EARS, NOSE AND THROAT: Nose without bleeding or purulent nasal discharge. No sinus tenderness. Mucous membranes pink and moist. No oral lesions noted. No exudate. No oral thrush. NECK: Trachea midline. Supple and not tender, no meningeal signs CARDIOVASCULAR: Regular rate and rhythm. Tachycardic. No murmurs, rubs or gallops heard RESPIRATORY: Clear to auscultation. Breath sounds equal bilaterally. No rales , wheezing or rhonchi ABDOMEN: Soft, non-tender, nondistended. Bowel sounds present and normoactive. No guarding. No rebound. No organomegaly. EXTREMITIES: No clubbing, cyanosis, or edema. Has some swelling R knee, no heat, no redness, has good ROM. No calf tenderness. Well perfused and warm. NEUROLOGICAL: Awake and alert. Cranial nerves grossly intact. Motor grossly within normal limits. PSYCHIATRIC: Normal affect, calm and cooperative. LINE: No evidence of infection Results - Labs CBC & Chem 7: 07/16/18 15:11 07/17/18 06:08 Labs: Laboratory Results - last 24 hr 07/16/18 07/16/18 07/16/18 12:36 14:01 15:11 WBC 19.3 H RBC 4.33 Hgb 11.6 Hct 35.7 MCV 82.5 MCH 26.7 L MCHC 32.4 RDW 15.3 Plt Count 357 MPV 8.9 Neut % (Auto) 83.1 H Lymph % (Auto) 7.4 L [place] % (Auto) 8.7 H Eos % (Auto) 0.6 Baso % (Auto) 0.2 Neut # (Auto) 16.1 H Lymph # (Auto) 1.4 [place] # (Auto) 1.7 H Eos # (Auto) 0.1 Baso # (Auto) 0.0 WBC Differential . Differential Comment Auto diff final Sodium Potassium Chloride Carbon Dioxide Anion Gap BUN Creatinine Estimated GFR POC Glucose 67 L 98 Random Glucose Calcium Total Bilirubin AST ALT Alkaline Phosphatase Troponin I C-Reactive Protein Total Protein Albumin 07/16/18 07/16/18 07/16/18 15:11 16:18 16:48 WBC RBC Hgb Hct MCV MCH MCHC RDW Plt Count MPV Neut % (Auto) Lymph % (Auto) [place] % (Auto) Eos % (Auto) Baso % (Auto) Neut # (Auto) Lymph # (Auto) [place] # (Auto) Eos # (Auto) Baso # (Auto) WBC Differential Differential Comment Sodium 139 Potassium 4.1 Chloride 106 Carbon Dioxide 23.4 Anion Gap 10 BUN 21 H Creatinine 1.09 H Estimated GFR 62 L POC Glucose 62 L 147 H Random Glucose 79 Calcium 8.4 L Total Bilirubin 1.0 AST 18 ALT 16 Alkaline Phosphatase 69 Troponin I Less than 0.02 L C-Reactive Protein Total Protein 8.0 Albumin 2.0 L 07/16/18 07/17/18 07/17/18 20:50 05:44 06:08 WBC RBC Hgb Hct MCV MCH MCHC RDW Plt Count MPV Neut % (Auto) Lymph % (Auto) [place] % (Auto) Eos % (Auto) Baso % (Auto) Neut # (Auto) Lymph # (Auto) [place] # (Auto) Eos # (Auto) Baso # (Auto) WBC Differential Differential Comment Sodium Potassium Chloride Carbon Dioxide Anion Gap BUN Creatinine 1.13 H Estimated GFR 59 L POC Glucose 150 H 180 H Random Glucose Calcium Total Bilirubin AST ALT Alkaline Phosphatase Troponin I C-Reactive Protein 26.00 H Total Protein Albumin 07/17/18 08:13 WBC RBC Hgb Hct MCV MCH MCHC RDW Plt Count MPV Neut % (Auto) Lymph % (Auto) [place] % (Auto) Eos % (Auto) Baso % (Auto) Neut # (Auto) Lymph # (Auto) [place] # (Auto) Eos # (Auto) Baso # (Auto) WBC Differential Differential Comment Sodium Potassium Chloride Carbon Dioxide Anion Gap BUN Creatinine Estimated GFR POC Glucose 169 H Random Glucose Calcium Total Bilirubin AST ALT Alkaline Phosphatase Troponin I C-Reactive Protein Total Protein Albumin - Imaging Chest X-Ray 07/15/18 17:02 CONCLUSION: Negative examination. Abdomen/Pelvis CT 07/15/18 18:54 CONCLUSION: 1. Small bilateral pleural effusions and small pericardial effusion. 2. Moderate constipation, especially rectal. 3. Multiple calcified gallstones. 4. No renal calculi or evidence for obstructive uropathy. Small left renal cyst. Probable 2.8 cm left adrenal adenoma. Chest CTA 07/15/18 18:54 CONCLUSION: 1. Negative for pulmonary embolus. Small lateral pleural effusions and pericardial effusion measuring around 12 mm in thickness posteriorly. Dependent atelectasis. Assessment and Plan - Plan Impression Pericarditis, improving Clinically no evidence of endocarditis Hx cardiomyopathy Leukocytosis Recommendation Would favor stopping all Abx - stop Zosyn today, and if stable stop Vanco tomorrow Monitor off Abx She seems to be responding to the NSAID started by cardiology Follow C/S Repeat CBC Monitor progress I will follow along with you Thank you for this consultation
[2018-07-17] MEDS: Vancomycin Inj 2,500 MG in Sodium Chlor 0.9% Inj 500 ML IV.SIG SCH (12:30)
--- NOTE | 2018-07-17 22:24 | P.PNCA ---
Subjective Interval history: Chest pain decreased with Ibuprofen Medications and Allergies Active Medications: Active Medications Al Hydroxide/Mg Hydroxide (Milk Of Magnesia Liq) 30 ml PO Q12H PRN PRN Reason: Mild Constipation Bisacodyl (Dulcolax Supp) 10 mg RECTAL DAILY PRN PRN Reason: SEVERE CONSITIPATION Dextrose (D50w Vial) 50 ml IV.PUSH UNSCH PRN PRN Reason: PER HYPOGLYCEMIA PROTOCOL Last Admin: 07/16/18 16:27 Dose: 50 ml Glucagon (Glucagon Inj) 1 mg OTHER PRN PRN PRN Reason: for Hypoglycemia Protocol Vancomycin HCl 2,500 mg/ (Sodium Chloride) 525 mls @ 250 mls/hr IV.SIG Q24H [facility] Last Infusion: 07/17/18 15:17 Dose: Infused Ibuprofen (Motrin) 600 mg PO Q8H [facility] Last Admin: 07/17/18 17:23 Dose: 600 mg Insulin Aspart (Novolog Insulin Correctional Sugar Inj) 0 unit SQ ACHS [facility]; Protocol Last Admin: 07/17/18 21:47 Dose: 7 unit Lactulose (Lactulose Liq) 30 ml PO DAILY PRN PRN Reason: SEVERE CONSITIPATION Miscellaneous Information ([facility] Ordered Lab Info) 0 each OTHER ONCE ONE Stop: 07/19/18 12:46 Morphine Sulfate (Morphine Inj) 2 mg IV.PUSH Q4H PRN PRN Reason: Acute Pain Nifedipine (Procardia Xl) 30 mg PO DAILY [facility] Last Admin: 07/17/18 08:13 Dose: 30 mg Pharmacy Profile Note (Vancomycin Consult Pharmacy) 1 each OTHER UNSCH PRN PRN Reason: Pharmacy to dose Sennosides (Senokot) 17.2 mg PO Q12H PRN PRN Reason: Moderate Constipation Allergies Allergy/AdvReac Type Severity Reaction Status Date / Time No Known Allergies Allergy Verified 07/15/18 16:58 Home Medications Medication Instructions Recorded Confirmed Type glyburide 2.5 mg PO BID 07/15/18 07/15/18 History metformin [Glucophage] 1,000 mg PO DAILY 07/15/18 07/15/18 History Physical Exam Vital signs: Vital Signs 07/17/18 00:00 07/17/18 00:12 07/17/18 01:00 Temperature 97.9 F 99.6 F 99.5 F Pulse Rate 121 H Respiratory Rate 19 Blood Pressure 133/64 Pulse Oximetry 95 10/31/18 04:00 07/17/18 08:36 07/17/18 09:00 Temperature 97.7 F 98.7 F Pulse Rate 65 117 H 117 H Respiratory Rate 20 20 Blood Pressure 121/63 152/69 H Pulse Oximetry 97 98 07/17/18 11:57 07/17/18 15:44 Temperature 98.5 F 98.6 F Pulse Rate 116 H 120 H Respiratory Rate 18 20 Blood Pressure 137/87 142/62 H Pulse Oximetry 96 99 Intake & Output 07/17/18 07/17/18 07/18/18 06:59 18:59 06:59 Intake Total 100 / 100 525 / 525 Balance 100 / 100 525 / 525 Intake: IV 100 / 100 525 / 525 Zosyn 3.375 GM Premix 50 ML @ 100 / 100 100 mls/hr IV.SIG Q6H [facility] Rx#: [id number] Vancomycin Inj 2,500 MG In NS 525 / 525 Inj 500 ML @ 250 mls/hr IV.SIG Q24H [facility] Rx#:[id number] Other: # Bowel Movements 1 Narrative: Physical Examination GENERAL: Patient is a well-nourished, well-developed female, awake and alert , not in respiratory distress. SKIN: Cool and dry. No generalized rash, no ecchymoses and no evidence of embolic lesions. HEAD: Atraumatic. Normocephalic. No temporal wasting, or tenderness. EYES: [place] conjunctiva. No petechia or hemorrhage. Pupils equal, round and reactive to light. Extraocular movements full and intact. No scleral icterus. No injection or drainage. EARS, NOSE AND THROAT: Nose without bleeding or purulent nasal discharge. No sinus tenderness. Mucous membranes pink and moist. No oral lesions noted. No exudate. No oral thrush. NECK: Trachea midline. Supple and not tender, no meningeal signs CARDIOVASCULAR: Regular rate and rhythm. Tachycardic. No murmurs, rubs or gallops heard RESPIRATORY: Clear to auscultation. Breath sounds equal bilaterally. No rales , wheezing or rhonchi ABDOMEN: Soft, non-tender, nondistended. Bowel sounds present and normoactive. No guarding. No rebound. No organomegaly. EXTREMITIES: No clubbing, cyanosis, or edema. Has some swelling R knee, no heat, no redness, has good ROM. No calf tenderness. Well perfused and warm. NEUROLOGICAL: Awake and alert. Cranial nerves grossly intact. Motor grossly within normal limits. PSYCHIATRIC: Normal affect, calm and cooperative. LINE: No evidence of infection - Urinary Catheter Management Straight Cath placed during this visit: yes, but has since been removed by the nurse Reason for continuing: Not indwelling catheter Insertion date: 07/15/18 Insertion time: 15:30 Removal date: 07/15/18 Removal time: 17:32 Results 07/16/18 15:11 07/17/18 06:08 Cardiac Enzymes 07/16/18 07/16/18 Range/Units 00:50 15:11 AST 18 (15-37) U/L Troponin I Less than 0.02 L Less than 0.02 L (0.02-0.05) ng/mL CBC 07/16/18 Range/Units 15:11 WBC 19.3 H (4.0-11.0) th/mm3 RBC 4.33 (4.00-5.30) mil/mm3 Hgb 11.6 (11.6-15.3) gm/dL Hct 35.7 (35.0-46.0) % Plt Count 357 (150-450) th/mm3 Neut # (Auto) 16.1 H (1.8-7.7) th/mm3 Lymph # (Auto) 1.4 (1.0-4.8) th/mm3 [place] # (Auto) 1.7 H (0.0-0.9) th/mm3 Eos # (Auto) 0.1 (0.0-0.4) th/mm3 Baso # (Auto) 0.0 (0.0-0.2) th/mm3 Comprehensive Metabolic Panel 07/16/18 07/17/18 Range/Units 15:11 06:08 Sodium 139 (136-145) meq/L Potassium 4.1 (3.5-5.1) meq/L Chloride 106 (98-107) meq/L Carbon Dioxide 23.4 (21.0-32.0) meq/L BUN 21 H (7-18) mg/dL Creatinine 1.09 H 1.13 H (0.50-1.00) mg/dL Calcium 8.4 L (8.5-10.1) mg/dL AST 18 (15-37) U/L ALT 16 (10-53) U/L Alkaline Phosphatase 69 (45-117) U/L Total Protein 8.0 (6.4-8.2) g/dL Albumin 2.0 L (3.4-5.0) g/dL Intake and Output 07/17/18 07/17/18 07/17/18 06:59 14:59 22:59 Intake Total 100 / 100 525 / 525 Balance 100 / 100 525 / 525 Intake: IV 100 / 100 525 / 525 Zosyn 3.375 GM Premix 50 ML @ 100 / 100 100 mls/hr IV.SIG Q6H [facility] Rx#: [id number] Vancomycin Inj 2,500 MG In NS 525 / 525 Inj 500 ML @ 250 mls/hr IV.SIG Q24H [facility] Rx#:[id number] Other: # Bowel Movements 1 Assessment and Plan - Assessment (1) Pericarditis Code(s): I31.9 - Disease of pericardium, unspecified Status: Acute (2) Hypertension, uncontrolled Code(s): I10 - Essential (primary) hypertension Status: Chronic (3) Chest pain Code(s): R07.9 - Chest pain, unspecified Status: Acute (4) Pericardial effusion Code(s): I31.3 - Pericardial effusion (noninflammatory) Status: Acute - Plan 1) Acute pericarditis Con't Ibuprofen around the clock Will need to continue for 2-4 weeks with a taper CRP elevated 2) Pericardial effusion No tamponade 3) Elevated WBC Most likely due to pericarditis Would stop anti-biotics 4) No signs/symptoms of endocarditis No further work up 5) Possible discharge tomorrow if stable (3) Chest pain Qualifiers: Chest pain type: unspecified Qualified Code(s): R07.9 - Chest pain, unspecified
[2018-07-18] MEDS: Ibuprofen 600 MG Tablet PO SCH ×3 (01:23→17:27)
[2018-07-18 07:24] LABS: Baso # (Auto) 0.1 th/mm3 (0.0-0.2); Baso % (Auto) 0.8 % (0.0-2.0); Eos # (Auto) 0.8 th/mm3 (0.0-0.4); Eos % (Auto) 7.3 % (0.0-4.0); Hematocrit 27.8 % (35.0-46.0); Hemoglobin 9.1 gm/dL (11.6-15.3); Lymph # (Auto) 2.4 th/mm3 (1.0-4.8); Lymph % (Auto) 21.5 % (9.0-44.0); Mean Corpuscular HGB Conc 32.7 % (32.0-36.0); Mean Corpuscular Hemoglobin 27.3 pg (27.0-34.0); Mean Corpuscular Volume 83.5 fL (80.0-100.0); Mean Platelet Volume 9.2 fL (7.0-11.0); Mono # (Auto) 1.1 th/mm3 (0.0-0.9); Mono % (Auto) 9.7 % (0.0-8.0); Neut # (Auto) 6.8 th/mm3 (1.8-7.7); Neut % (Auto) 60.7 % (16.0-70.0); Platelet Count 365 th/mm3 (150-450); Red Blood Count 3.33 mil/mm3 (4.00-5.30); Red Cell Distribution Width 15.2 % (11.6-17.2); White Blood Count 11.2 th/mm3 (4.0-11.0)
[2018-07-18] MEDS: Insulin NovoLOG Aspart Correctional Sugar Inj SQ SCH ×4 (08:31→21:54)
--- NOTE | 2018-07-18 09:00 | P.PNFP ---
Subjective Interval history: Chest pain, better, complains of shoulder and back pain. Denies SOB, did not sleep well Requesting to change diet Results - Labs Result diagrams: 07/18/18 05:52 07/17/18 06:08 Abnormal lab results 07/17/18 07/17/18 07/17/18 Range/Units 12:31 17:22 21:38 WBC (4.0-11.0) th/mm3 RBC (4.00-5.30) mil/mm3 Hgb (11.6-15.3) gm/dL Hct (35.0-46.0) % [place] % (Auto) (0.0-8.0) % Eos % (Auto) (0.0-4.0) % [place] # (Auto) (0.0-0.9) th/mm3 Eos # (Auto) (0.0-0.4) th/mm3 POC Glucose 326 H 135 H 299 H (68-110) mg/dl 07/18/18 07/18/18 Range/Units 05:52 08:26 WBC 11.2 H (4.0-11.0) th/mm3 RBC 3.33 L (4.00-5.30) mil/mm3 Hgb 9.1 L D (11.6-15.3) gm/dL Hct 27.8 L (35.0-46.0) % [place] % (Auto) 9.7 H (0.0-8.0) % Eos % (Auto) 7.3 H (0.0-4.0) % [place] # (Auto) 1.1 H (0.0-0.9) th/mm3 Eos # (Auto) 0.8 H (0.0-0.4) th/mm3 POC Glucose 141 H (68-110) mg/dl Short CBC 07/18/18 Range/Units 05:52 WBC 11.2 H (4.0-11.0) th/mm3 Hgb 9.1 L D (11.6-15.3) gm/dL Hct 27.8 L (35.0-46.0) % Plt Count 365 (150-450) th/mm3 Physical Exam Vital signs: Vital Signs 07/17/18 09:00 07/17/18 11:57 07/17/18 15:44 Temperature 98.5 F 98.6 F Pulse Rate 117 H 116 H 120 H Respiratory Rate 18 20 Blood Pressure 137/87 142/62 H Pulse Oximetry 96 99 07/17/18 19:44 07/18/18 00:00 07/18/18 04:00 Temperature 98.4 F 98.9 F 98.5 F Pulse Rate 119 H 119 H 107 H Respiratory Rate 20 20 14 Blood Pressure 208/108 H 165/94 H 129/73 Pulse Oximetry 100 96 98 07/18/18 08:00 Temperature 97.9 F Pulse Rate 111 H Respiratory Rate 18 Blood Pressure 145/86 H Pulse Oximetry 99 Intake & Output 07/17/18 07/18/18 07/18/18 18:59 06:59 18:59 Intake Total 525 / 525 Balance 525 / 525 Intake: IV 525 / 525 Vancomycin Inj 2,500 MG In NS 525 / 525 Inj 500 ML @ 250 mls/hr IV.SIG Q24H [facility] Rx#:[id number] Other: # Voids 1 - Constitutional no acute distress - Routine HEENT Exam Eye: Present: PERRL ENT: Present: mucous membranes moist - Routine Neck Exam Present: supple - Routine Respiratory Exam Present: CTA bilaterally - Routine Cardiovascular Exam Present: S1, S2 - Routine Abdominal Exam Present: soft, normoactive bowel sounds - Routine Skin Exam Present: dry, warm - Routine Neurological Exam Present: alert, oriented X3 - Routine Psychiatric Exam Present: cooperative - Urinary Catheter Management Straight Cath placed during this visit: yes, but has since been removed by the nurse Reason for continuing: Not indwelling catheter Insertion date: 07/15/18 Insertion time: 15:30 Removal date: 07/15/18 Removal time: 17:32 Assessment and Plan - Assessment (1) Endocarditis Code(s): I38 - Endocarditis, valve unspecified Status: Acute Plan: Cardiology following, Ibuprofen started, Echo ordered, cont to follow rec's (2) Diabetes mellitus Code(s): E11.9 - Type 2 diabetes mellitus without complications Status: Acute Plan: Monitor Blood sugars, she does have a couple noted low BS, will hold oral meds for now (3) KASSIDY (acute kidney injury) Code(s): N17.9 - Acute kidney failure, unspecified Status: Resolved Plan: Monitor renal functions and trends (4) Pericardial effusion Code(s): I31.3 - Pericardial effusion (noninflammatory) Status: Acute Plan: Small pleural effusions noted, denies SOB Consult pulmonary if needed - Assessment and Plan 07/18/18- chest pain has decreased on Motrin. She denies sob, she is afebrile. Seen by ID, rec's made to DC all antibiotics, renal functions stable. WBC today 11. BP elevated, HR in low 100's. She is on Procardia. Will add metoprolol, 12.5 bid. Will likely DC back to rehab once cleared by ID and cardiology. [id number] on chart. (2) Diabetes mellitus Qualifiers: Diabetes mellitus type: type 2 Diabetes mellitus group home insulin use: without group home use
[2018-07-18] MEDS: Metoprolol Tartrate 25 MG Tablet PO SCH ×2 (09:44→21:52)
--- NOTE | 2018-07-18 10:57 | P.PNID ---
Subjective Remarks: Patient is a 63-year-old female, brought into the hospital complaining of left- sided chest pain and some fevers for 3 days. She describes the pain to be under her left breast, and it seems to be somewhat constant and at times would get worse when she takes a deep breath. He does not get exacerbated by activity. She has a very mild cough. No nausea or vomiting. Denies any shortness of breath. Patient was recently hospitalized the first week of June and at that time she had generalized weakness. She had E. coli UTI, and she was discharged to the rehab facility. On this admission, patient was found to have a small pericardial effusion. Cardiology evaluated the patient and felt that she has pericarditis. Echocardiogram did not show any evidence of vegetation. Patient has not been febrile. Her white count is elevated. Her chest pain is about 50% better. She is on vancomycin and Zosyn. Blood cultures are negative. Urinalysis has mild pyuria, but she does not have any symptoms. CT of the chest did not show any pulmonary infiltrates. No pulmonary embolism. Infectious disease consultation has been requested to assist with evaluation and treatment and possible endocarditis. Notes reviewed No fever Chest pain better WBC down to 11 K Antibiotics: Vancomycin Lines: PIV Past Medical History: CHF (congestive heart failure) Diabetes Lupus Rheumatoid arthritis Allergies/Adverse Reactions: Allergies No Known Allergies Allergy (Verified 07/15/18 16:58) Objective Vital Signs 07/17/18 11:57 07/17/18 15:44 07/17/18 19:44 Temperature 98.5 F 98.6 F 98.4 F Pulse Rate 116 H 120 H 119 H Respiratory Rate 18 20 20 Blood Pressure 137/87 142/62 H 208/108 H Pulse Oximetry 96 99 100 07/18/18 00:00 07/18/18 04:00 07/18/18 08:00 Temperature 98.9 F 98.5 F 97.9 F Pulse Rate 119 H 107 H 111 H Respiratory Rate 20 14 18 Blood Pressure 165/94 H 129/73 145/86 H Pulse Oximetry 96 98 99 Intake & Output 07/17/18 07/18/18 07/18/18 18:59 06:59 18:59 Intake Total 525 / 525 Balance 525 / 525 Intake: IV 525 / 525 Vancomycin Inj 2,500 MG In NS 525 / 525 Inj 500 ML @ 250 mls/hr IV.SIG Q24H JORGE Rx#:[id number] Other: # Voids 1 07/15/18 17:00 Blood - Peripheral Aerobic Blood Culture - Preliminary No growth in 2 days 07/15/18 17:00 Blood - Peripheral Anaerobic Blood Culture - Preliminary No growth in 2 days 07/15/18 17:06 Blood - Peripheral Aerobic Blood Culture - Preliminary No growth in 2 days 07/15/18 17:06 Blood - Peripheral Anaerobic Blood Culture - Preliminary No growth in 2 days 07/15/18 17:29 Nasal Wash Influenza Types A,B Antigen - Final Negative for FLU A and B antigen Infection due to influenza A or B cannot be ruled out since the antigen present in the sample may be below the detection limit of the test. Lab - Hematology Results 07/16/18 07/18/18 15:11 05:52 WBC 19.3 H 11.2 H RBC 4.33 3.33 L Hgb 11.6 9.1 L D Hct 35.7 27.8 L MCV 82.5 83.5 MCH 26.7 L 27.3 MCHC 32.4 32.7 RDW 15.3 15.2 Plt Count 357 365 MPV 8.9 9.2 Neut % (Auto) 83.1 H 60.7 Lymph % (Auto) 7.4 L 21.5 Luce % (Auto) 8.7 H 9.7 H Eos % (Auto) 0.6 7.3 H Baso % (Auto) 0.2 0.8 Neut # (Auto) 16.1 H 6.8 Lymph # (Auto) 1.4 2.4 [place] # (Auto) 1.7 H 1.1 H Eos # (Auto) 0.1 0.8 H Baso # (Auto) 0.0 0.1 WBC Differential . . Differential Comment Auto diff final Auto diff final Lab - Chemistry Results 07/16/18 07/16/18 07/16/18 12:36 14:01 15:11 Sodium 139 Potassium 4.1 Chloride 106 Carbon Dioxide 23.4 Anion Gap 10 BUN 21 H Creatinine 1.09 H Estimated GFR 62 L POC Glucose 67 L 98 Random Glucose 79 Calcium 8.4 L Total Bilirubin 1.0 AST 18 ALT 16 Alkaline Phosphatase 69 Troponin I Less than 0.02 L C-Reactive Protein Total Protein 8.0 Albumin 2.0 L 07/16/18 07/16/18 07/16/18 16:18 16:48 20:50 Sodium Potassium Chloride Carbon Dioxide Anion Gap BUN Creatinine Estimated GFR POC Glucose 62 L 147 H 150 H Random Glucose Calcium Total Bilirubin AST ALT Alkaline Phosphatase Troponin I C-Reactive Protein Total Protein Albumin 07/17/18 07/17/18 07/17/18 05:44 06:08 08:13 Sodium Potassium Chloride Carbon Dioxide Anion Gap BUN Creatinine 1.13 H Estimated GFR 59 L POC Glucose 180 H 169 H Random Glucose Calcium Total Bilirubin AST ALT Alkaline Phosphatase Troponin I C-Reactive Protein 26.00 H Total Protein Albumin 07/17/18 07/17/18 07/17/18 12:31 17:22 21:38 Sodium Potassium Chloride Carbon Dioxide Anion Gap BUN Creatinine Estimated GFR POC Glucose 326 H 135 H 299 H Random Glucose Calcium Total Bilirubin AST ALT Alkaline Phosphatase Troponin I C-Reactive Protein Total Protein Albumin 07/18/18 08:26 Sodium Potassium Chloride Carbon Dioxide Anion Gap BUN Creatinine Estimated GFR POC Glucose 141 H Random Glucose Calcium Total Bilirubin AST ALT Alkaline Phosphatase Troponin I C-Reactive Protein Total Protein Albumin Imaging: ITS Impressions Chest X-Ray 07/15/18 17:02 CONCLUSION: Negative examination. Abdomen/Pelvis CT 07/15/18 18:54 CONCLUSION: 1. Small bilateral pleural effusions and small pericardial effusion. 2. Moderate constipation, especially rectal. 3. Multiple calcified gallstones. 4. No renal calculi or evidence for obstructive uropathy. Small left renal cyst. Probable 2.8 cm left adrenal adenoma. Chest CTA 07/15/18 18:54 CONCLUSION: 1. Negative for pulmonary embolus. Small lateral pleural effusions and pericardial effusion measuring around 12 mm in thickness posteriorly. Dependent atelectasis. Physical Exam: GENERAL: awake and alert, not in respiratory distress. SKIN: Cool and dry. No generalized rash, no ecchymoses and no evidence of embolic lesions. HEAD: Atraumatic. Normocephalic. No temporal wasting, or tenderness. EYES: [place] conjunctiva. No petechia or hemorrhage. Pupils equal, round and reactive to light. Extraocular movements full and intact. No scleral icterus. No injection or drainage. EARS, NOSE AND THROAT: Nose without bleeding or purulent nasal discharge. No sinus tenderness. Mucous membranes pink and moist. No oral lesions noted. No exudate. No oral thrush. NECK: Trachea midline. Supple and not tender, no meningeal signs CARDIOVASCULAR: Regular rate and rhythm. Tachycardic. No murmurs, rubs or gallops heard RESPIRATORY: Clear to auscultation. Breath sounds equal bilaterally. No rales , wheezing or rhonchi ABDOMEN: Soft, non-tender, nondistended. Bowel sounds present and normoactive. No guarding. No rebound. No organomegaly. EXTREMITIES: No clubbing, cyanosis, or edema. Has some swelling R knee, no heat, no redness, has good ROM. No calf tenderness. Well perfused and warm. NEUROLOGICAL: Awake and alert. Cranial nerves grossly intact. Motor grossly within normal limits. PSYCHIATRIC: Normal affect, calm and cooperative. LINE: No evidence of infection Assessment and Plan - Plan Impression Pericarditis, improving Clinically no evidence of endocarditis Hx cardiomyopathy Leukocytosis Recommendation Stop Vanco She is responding to the NSAID started by cardiology Clinically no evidence of endocarditis Monitor progress Agree with current plan of possible discharge in the next day or 2 I will be available as needed, please call if with any further ID issue or question
[2018-07-18] MEDS: Benzonatate 100 MG Capsule PO PRN ×2 (14:38→22:17)
--- NOTE | 2018-07-18 18:52 | P.PNCA ---
Subjective Interval history: Feeling much better No complaints Medications and Allergies Active Medications: Active Medications Al Hydroxide/Mg Hydroxide (Milk Of Magnesia Liq) 30 ml PO Q12H PRN PRN Reason: Mild Constipation Benzonatate (Tessalon Perles) 200 mg PO Q8H PRN PRN Reason: COUGH Last Admin: 07/18/18 14:38 Dose: 200 mg Bisacodyl (Dulcolax Supp) 10 mg RECTAL DAILY PRN PRN Reason: SEVERE CONSITIPATION Dextrose (D50w Vial) 50 ml IV.PUSH UNSCH PRN PRN Reason: PER HYPOGLYCEMIA PROTOCOL Last Admin: 07/16/18 16:27 Dose: 50 ml Glucagon (Glucagon Inj) 1 mg OTHER PRN PRN PRN Reason: for Hypoglycemia Protocol Ibuprofen (Motrin) 600 mg PO Q8H [facility] Last Admin: 07/18/18 17:27 Dose: 600 mg Insulin Aspart (Novolog Insulin Correctional Sugar Inj) 0 unit SQ [facility]; Protocol Last Admin: 07/18/18 17:32 Dose: Not Given Lactulose (Lactulose Liq) 30 ml PO DAILY PRN PRN Reason: SEVERE CONSITIPATION Metoprolol Tartrate (Lopressor) 12.5 mg PO BID [facility] Last Admin: 07/18/18 09:44 Dose: 12.5 mg Miscellaneous (Pill Splitter) 1 each OTHER UNSCH [facility] Miscellaneous Information ([facility] Ordered Lab Info) 0 each OTHER ONCE ONE Stop: 07/19/18 12:46 Morphine Sulfate (Morphine Inj) 2 mg IV.PUSH Q4H PRN PRN Reason: Acute Pain Nifedipine (Procardia Xl) 30 mg PO DAILY [facility] Last Admin: 07/18/18 08:24 Dose: 30 mg Sennosides (Senokot) 17.2 mg PO Q12H PRN PRN Reason: Moderate Constipation Tramadol HCl (Ultram) 50 mg PO Q6H PRN PRN Reason: PAIN 1-10 Last Admin: 07/17/18 23:40 Dose: 50 mg Trazodone HCl (Desyrel) 50 mg PO [facility] Allergies Allergy/AdvReac Type Severity Reaction Status Date / Time No Known Allergies Allergy Verified 07/15/18 16:58 Home Medications Medication Instructions Recorded Confirmed Type glyburide 2.5 mg PO BID 10/29/18 10/29/18 History metformin [Glucophage] 1,000 mg PO DAILY 07/15/18 07/15/18 History Physical Exam Vital signs: Vital Signs 07/17/18 19:44 07/18/18 00:00 07/18/18 04:00 Temperature 98.4 F 98.9 F 98.5 F Pulse Rate 119 H 119 H 107 H Respiratory Rate 20 20 14 Blood Pressure 208/108 H 165/94 H 129/73 Pulse Oximetry 100 96 98 07/18/18 08:00 07/18/18 12:00 07/18/18 16:00 Temperature 97.9 F 98.1 F 98.8 F Pulse Rate 111 H 99 H 99 H Respiratory Rate 18 18 Blood Pressure 145/86 H 126/63 130/76 Pulse Oximetry 99 99 99 Intake & Output 07/17/18 07/18/18 07/18/18 18:59 06:59 18:59 Intake Total 525 / 525 Balance 525 / 525 Intake: IV 525 / 525 Vancomycin Inj 2,500 MG In NS 525 / 525 Inj 500 ML @ 250 mls/hr IV.SIG Q24H JORGE Rx#:[id number] Other: # Voids 1 Narrative: Physical Examination GENERAL: Patient is a well-nourished, well-developed female, awake and alert , not in respiratory distress. SKIN: Cool and dry. No generalized rash, no ecchymoses and no evidence of embolic lesions. HEAD: Atraumatic. Normocephalic. No temporal wasting, or tenderness. EYES: [place] conjunctiva. No petechia or hemorrhage. Pupils equal, round and reactive to light. Extraocular movements full and intact. No scleral icterus. No injection or drainage. EARS, NOSE AND THROAT: Nose without bleeding or purulent nasal discharge. No sinus tenderness. Mucous membranes pink and moist. No oral lesions noted. No exudate. No oral thrush. NECK: Trachea midline. Supple and not tender, no meningeal signs CARDIOVASCULAR: Regular rate and rhythm. Tachycardic. No murmurs, rubs or gallops heard RESPIRATORY: Clear to auscultation. Breath sounds equal bilaterally. No rales , wheezing or rhonchi ABDOMEN: Soft, non-tender, nondistended. Bowel sounds present and normoactive. No guarding. No rebound. No organomegaly. EXTREMITIES: No clubbing, cyanosis, or edema. Has some swelling R knee, no heat, no redness, has good ROM. No calf tenderness. Well perfused and warm. NEUROLOGICAL: Awake and alert. Cranial nerves grossly intact. Motor grossly within normal limits. PSYCHIATRIC: Normal affect, calm and cooperative. LINE: No evidence of infection - Urinary Catheter Management Straight Cath placed during this visit: yes, but has since been removed by the nurse Reason for continuing: Not indwelling catheter Insertion date: 07/15/18 Insertion time: 15:30 Removal date: 07/15/18 Removal time: 17:32 Results 07/18/18 05:52 07/17/18 06:08 CBC 07/18/18 Range/Units 05:52 WBC 11.2 H (4.0-11.0) th/mm3 RBC 3.33 L (4.00-5.30) mil/mm3 Hgb 9.1 L D (11.6-15.3) gm/dL Hct 27.8 L (35.0-46.0) % Plt Count 365 (150-450) th/mm3 Neut # (Auto) 6.8 (1.8-7.7) th/mm3 Lymph # (Auto) 2.4 (1.0-4.8) th/mm3 [place] # (Auto) 1.1 H (0.0-0.9) th/mm3 Eos # (Auto) 0.8 H (0.0-0.4) th/mm3 Baso # (Auto) 0.1 (0.0-0.2) th/mm3 Comprehensive Metabolic Panel 07/17/18 Range/Units 06:08 Creatinine 1.13 H (0.50-1.00) mg/dL Intake and Output 07/18/18 07/18/18 07/18/18 06:59 14:59 22:59 Other: # Voids 1 Assessment and Plan - Assessment (1) Pericarditis Code(s): I31.9 - Disease of pericardium, unspecified Status: Acute (2) Hypertension, uncontrolled Code(s): I10 - Essential (primary) hypertension Status: Chronic (3) Chest pain Code(s): R07.9 - Chest pain, unspecified Status: Acute (4) Pericardial effusion Code(s): I31.3 - Pericardial effusion (noninflammatory) Status: Acute - Plan 1) Acute pericarditis Con't Ibuprofen around the clock Will need to continue with taper 600mg TID for a week, then 600mg BID for a week, then 400mg BID for a week , then 400mg daily for a week CRP elevated 2) Pericardial effusion No tamponade 3) Elevated WBC Most likely due to pericarditis Would stop anti-biotics 4) No signs/symptoms of endocarditis No further work up 5) No further cardiovascular work up Please have her rehab continue her on the NSAID taper or she will have repeat pericarditis (3) Chest pain Qualifiers: Chest pain type: unspecified Qualified Code(s): R07.9 - Chest pain, unspecified
[2018-07-18] MEDS ORDERED: traZODone 50 MG Tablet PO SCH (21:00)
[2018-07-19] MEDS: Ibuprofen 600 MG Tablet PO SCH ×2 (01:53→09:36)
--- NOTE | 2018-07-19 08:46 | P.DS ---
Date of admission: 07/18/18 13:52 Primary care physician: Courtney Gonzalez MD Brief History from admission: 63 y/o female with a history of chf, DM, lupus and RA presented to the ED with complaints of chest pain and fevers for 3 days. She is from [facility] and is a poor historian regarding medical history and medications. She is very somnolent but states she has had chest pain for 3 days, intermittent, under left breast, worse with taking a deep breath. She denies any nausea, vomiting, headaches or dysuria. No family is at bedside at time of examination. Records that were sent from [facility] was reviewed. DS: Diagnosis - Discharge Diagnosis (1) Endocarditis Status: Acute (2) Diabetes mellitus Status: Acute (3) KASSIDY (acute kidney injury) Status: Resolved (4) Pericardial effusion Status: Acute DS: Summary Hospital Course: 63-year-old admitted for left-sided chest pain and some fevers for 3 days. She was stared on Vanco and Zosyn in ED. Cardiology evaluated the patient and felt that she has pericarditis. Echocardiogram did not show any evidence of vegetation. She was started on Motrin 600 mg tid, with immediate improvement. She was seen by ID for leukocytosis, and it was determined this was related to percarditis and antibiotic were stopped. She will be sent back to rehab on taper dose of Motrin over next 4 weeks. - Time Spent with Patient Total time spent providing and/or coordinating discharge services: 25min Less than 30 minutes - Quality: AMI Clinical Trial Participant: No - Quality: Stroke Symptom Onset Unknown: No - Quality: VTE Is this test being ordered to rule out VTE?: No Deep Vein Thrombosis/Pulmonary Embolism Present on Admission: No Exam Vital signs: Vital Signs 07/18/18 12:00 07/18/18 16:00 07/18/18 20:00 Temperature 98.1 F 98.8 F 97.9 F Pulse Rate 99 H 99 H 110 H Respiratory Rate 18 18 18 Blood Pressure 126/63 130/76 148/70 H Pulse Oximetry 99 99 99 07/18/18 23:47 07/19/18 04:00 07/19/18 07:37 Temperature 99.4 F 98.4 F 97.5 F L Pulse Rate 102 H 106 H 113 H Respiratory Rate 18 16 16 Blood Pressure 140/68 142/68 H 145/83 H Pulse Oximetry 100 98 99 Intake & Output 07/18/18 07/19/18 07/19/18 18:59 06:59 18:59 Other: # Voids 1 # Incontinent Voids 1 - Constitutional no acute distress - Routine HEENT Exam Head: Present: normocephalic Eye: Present: PERRL ENT: Present: mucous membranes moist - Routine Neck Exam Present: supple - Routine Respiratory Exam Present: CTA bilaterally - Routine Cardiovascular Exam Present: S1, S2, tachycardia - Routine Abdominal Exam Present: soft, normoactive bowel sounds - Routine Skin Exam Present: dry, warm - Routine Neurological Exam Present: alert, oriented X3 Results Procedures completed during hospitalization: na Labs on day of discharge: Labs from last 24 hours 07/18/18 07/18/18 07/18/18 21:43 17:31 11:52 POC Glucose 230 H 105 342 H 07/18/18 08:26 POC Glucose 141 H Preliminary micro results at discharge 07/15/18 17:00 Aerobic Blood Culture - Preliminary Blood - Peripheral No growth in 3 days Anaerobic Blood Culture - Preliminary No growth in 3 days 07/15/18 17:06 Aerobic Blood Culture - Preliminary Blood - Peripheral No growth in 3 days Anaerobic Blood Culture - Preliminary No growth in 3 days - Impressions ITS Impressions Chest X-Ray 07/15/18 17:02 CONCLUSION: Negative examination. Abdomen/Pelvis CT 07/15/18 18:54 CONCLUSION: 1. Small bilateral pleural effusions and small pericardial effusion. 2. Moderate constipation, especially rectal. 3. Multiple calcified gallstones. 4. No renal calculi or evidence for obstructive uropathy. Small left renal cyst. Probable 2.8 cm left adrenal adenoma. Chest CTA 07/15/18 18:54 CONCLUSION: 1. Negative for pulmonary embolus. Small lateral pleural effusions and pericardial effusion measuring around 12 mm in thickness posteriorly. Dependent atelectasis. Discharge Plan - Discharge Disposition Patient Disposition: Discharge to SNF - Discharge Condition Condition: Stable - Discharge Order Discharge Orders: Discharge Order (Routine); Ordered 07/19/18 Ordered By: Oneyda Mckeon - Discharge Details Anticipated Discharge Date: 07/19/18 Discharge Comment: Motrin taper dose - Physicians Team Primary Care Provider: Courtney Gonzalez Attending Provider: Hector Adams Other Providers: Reanna Mcconnell MD ; [facility] ; Adenike Redman MD
[2018-07-19] MEDS: Insulin NovoLOG Aspart Correctional Sugar Inj SQ SCH (09:34)
[2018-07-19] MEDS: Metoprolol Tartrate 25 MG Tablet PO SCH (09:35)
[2018-07-19 10:19] LABS: Hemoglobin 10.6 gm/dL (11.6-15.3); Mean Corpuscular HGB Conc 32.2 % (32.0-36.0); Mean Corpuscular Hemoglobin 27.6 pg (27.0-34.0); Mean Corpuscular Volume 85.9 fL (80.0-100.0); Mean Platelet Volume 8.4 fL (7.0-11.0); Platelet Count 422 th/mm3 (150-450); Red Blood Count 3.84 mil/mm3 (4.00-5.30); Red Cell Distribution Width 15.7 % (11.6-17.2); White Blood Count 10.5 th/mm3 (4.0-11.0)
[2018-07-19 10:53] LABS: Calcium 8.7 mg/dL (8.5-10.1); Carbon Dioxide 22.7 meq/L (21.0-32.0)
[2018-07-19] MEDS ORDERED: Pharmacy Ordered Lab Info OTHER ONE (12:45)
== END 2018-07-19 11:35 ==
LOC: NEPC 16:45 → NEDA 16:45 → NEPGCP 22:46
PROVIDERS: ADMIT Family Medicine; ATTEND Family Medicine